=== PATIENT | female | born 1960 | race Caucasian/White ===

== ENCOUNTER 2023-08-23 09:49 | Inpatient (IN) | payer OTHER, SELFPAY ==
[2023-08-23] VITALS (16 sets, daily range): BP systolic 98–164; BP diastolic 59–91; BMI 31.9
--- NOTE | 2023-08-23 07:11 | ED.GENMED ---
History of Present Illness
<EMILY Barber - Last Filed: 08/23/23 13:38>
General
Chief Complaint: Chest Pain
Source: patient
Exam Limitations: none
Time Seen by Provider: 08/23/23 07:10
Nursing documentation reviewed up to this point in time: agreed with
Travel History
Have you had any contact with someone who has COVID-19?: No
Do you have any symptoms of coronavirus? Fever > 100 degrees, chills, cough, shortness of breath, sore throat, loss of taste or smell, muscle aches, or headache?: No
History of Present Illness
History of Present Illness:
63-year-old female with past with history of hypertension high cholesterol presents to the ER for evaluation of chest pain. Patient reports she started to have chest pain at 4:20 am in the morning. She noticed pain across her chest and felt that
her right hand/arm felt tingly. She had no associated shortness of breath. She denies any other radiation. She did take Tums and thought it was reflux. She reports since the start of pain has subsided a little bit but she still feels that
Past History
<EMILY Barber - Last Filed: 08/23/23 13:38>
Past History
ED Past Medical History: GERD and Other (Patient's her thyroid removed due to cancer, she has had fibromyalgia )
ED Past Surgical History: Other (The patient has had a spinal fusion, and thyroid surgery due to cancer )
Social History
Living: with family
Employment: Employed
Family History
Family History: Other (NA)
Review of Systems
<EIMLY Barber - Last Filed: 08/23/23 13:38>
Review of Systems
Allergies reviewed?: Yes
All Other Systems: ROS reviewed and negative except as documented in HPI and ROS
Constitutional: Reports no symptoms; Denies fever, fatigue or chills
EENT: Reports no symptoms
Respiratory: Reports no symptoms; Denies trouble breathing
Cardiac: Reports chest pain; Denies diaphoresis, palpitations or syncope
ABD/GI: Reports no symptoms
: Reports no symptoms
Musculoskeletal: Reports no symptoms
Skin: Reports no symptoms
Neurological: Reports other (Mild tingling right hand)
Psychiatric: Reports no symptoms
Phy Exam
<EMILY Barber - Last Filed: 08/23/23 13:38>
General Physical Exam
General Presentation: no apparent distress
General age: appears stated age
General Skin: warm and dry
General Habitus: normal
General Mental: alert
General Hydration: appears well hydrated
Cardiovascular Exam
Cardiovascular Exam: regular rate/rhythm, no murmur and normal peripheral pulses
Pulmonary Exam
Pulmonary Exam: lungs clear and no respiratory distress
Neurological Exam
Neurological Exam: alert and oriented x3
Musculoskeletal Exam
Musculoskeletal Exam: full ROM
Skin Exam
Skin Exam: normal color and warm/dry
Psychiatric Exam
Psychiatric Exam: normal mood/affect
Scores
<EMILY Barber - Last Filed: 08/23/23 13:38>
Heart Score for Chest Pain Patients
STEMI patient?: Not applicable
Course
<EMILY Barber - Last Filed: 08/23/23 13:38>
Orders/Labs/Results
Orders:
Orders
08/23/23 Breakfast
NPO
Allow oral meds: Yes
Allow clear liquids: No
08/23/23 06:55
EKG [Electrocardiogram (*1)] Urgent
Reason for Study: Chest Pain
EKG- Treatment ONCE
08/23/23 07:21
IV Insert/Care/Rem.- Treatment PRN
08/23/23 07:22
Cardiac Monitoring- Treatment ONCE
CR Chest - 2 Views Urgent
Comment:
Reason For Exam: cp
08/23/23 07:23
Complete Blood Count/With Diff Urgent
Comprehensive Metabolic Panel Urgent
Troponin I Urgent
08/23/23 07:58
Aspirin Chewable [Low Strength Aspirin] 324 mg PO NOW STA
08/23/23 08:04
Nitroglycerin Sublingual [Nitrostat (Sublingual)] 0.4 mg SL [id number] PRN
08/23/23 08:41
Morphine Sulfate 2 mg IV NOW STA
08/23/23 08:46
Heparin 4,000 units IV NOW STA
08/23/23 08:[address] Non Medication Order As Directed
Physician Order: PTT 6 hours after initial start of Heparin infusion
Above order entered?: Yes
08/23/23 08:59
PTT Urgent
Comment: Obtain baseline before beginning heparin infusion if not already collected
08/23/23 09:00
Heparin 56832 Units/250 ml 25,000 units in 250 ml IV PER PROTOCOL
Weight to be used for heparin protocol in kilograms (kg):: 76.5
Protocol:: Cardiac Tx/Acute Coronary
PTT Goal Range to be used:: PTT 73 to 111 seconds
Order type:: Initial
INITIAL Infusion Dose (UNITS/KG/hr) & then follow protocol:: 15 units/kg/hr
Infusion Dose in UNITS/hr & then follow protocol (UNITS/hr):: 1,150
INFUSION RATE in mL/hr & then follow protocol (mL/hr):: 11.5
PTT less than or equal to 64 seconds:: Increase rate by 200 units/hr (+ 2 mL/hr)
PTT 64.1 to 72.9 seconds:: Increase rate by 100 units/hr (+ 1 mL/hr)
PTT 73 to 111 seconds:: Target Range. No change in rate.
PTT 111.1 to 130.9 seconds:: Decrease rate by 100 units/hr (- 1 mL/hr)
PTT 131 to 199.9 seconds:: HOLD for 1 hr. Then decrease rate by 200 units/hr (- 2 mL/hr)
PTT greater than or equal to 200 seconds:: HOLD for 2 hrs & Notify Provider. Then decrease by 200 units/hr (-
2 mL/hr)
Lab follow-up:: Each change, PTT q6h until 2 consecutive are therapeutic. Then PTT
daily.
08/23/23 09:07
Heparin [id number] Units/250 ml 25,000 units in 250 ml .ROUTE .STK-MED
08/23/23 09:28
Admit Patient As Directed
Co-Sign Provider:
Level of Care: Inpatient admission
Assign to:: IVU
Physician / Group: Diane
Diagnosis: NSTEMI/chest pain
Reason for Hospitalization: chest pain/NSTEMI
Expected length of stay greater than two midnights?: Yes
ELOS- Estimated Length of Stay in days: 3
I certify the patient meets the requirements for IP care: Yes
Code Status As Directed
Resuscitation Status: Full Code
08/23/23 09:29
Glycohemoglobin (HgbA1c) Routine
Activity As Directed
Activity Level: Out of Bed-Early Mobility
INT (Intravenous Needle Therapy) As Directed
Comment: maintain peripheral IV access
Intake/ Output As Directed
Frequency: Per unit guidelines
Vital Signs As Directed
Frequency: q4h
08/23/23 09:33
Admit/Transfer Patient As Directed
Co-Sign Provider:
Level of Care: Inpatient admission
Assign to:: IVU
Physician / Group: Diane
Diagnosis: NSTEMI/chest pain
Reason for Hospitalization: chest pain
Expected length of stay greater than two midnights?: Yes
ELOS- Estimated Length of Stay in days: 2
I certify the patient meets the requirements for IP care: Yes
08/23/23 13:00
Troponin I Q6H
HydrALAZINE [Apresoline] 10 mg PO QID
08/23/23 18:00
Valsartan [Diovan] 40 mg PO QPM
08/23/23 19:00
Troponin I Q6H
08/23/23 20:00
Valsartan [Diovan] 80 mg PO BID
08/24/23 06:00
Basic Metabolic Panel IN AM
Cardiovascular Evaluation IN AM
Complete Blood Count/With Diff IN AM
08/24/23 07:00
Levothyroxine [Synthroid] 100 mcg PO MoTuWeThFr@0700
08/26/23 07:00
Levothyroxine [Synthroid] 50 mcg PO SuSa@0700
Abnormal Lab Results
08/23/23
07:23
RBC 4.18 L 10^6/uL
(4.20-5.40)
Hct 36.5 L %
(37.0-47.0)
Abs Immat Gran (auto) 0.1 H 10^3/uL
(0-0.05)
Absolute Neuts (auto) 7.5 H 10^3/uL
(1.4-6.5)
Immature Gran % 0.6 H %
(0-0.5)
Neutrophils % 77.7 H %
(42.2-75.2)
Lymphocytes % 13.5 L %
(20.5-51.1)
Chloride 108 H mmol/L
(98-107)
Glucose 111 H mg/dl
(70-99)
Troponin I 0.195 H* ng/ml
08/23/23 07:23
08/23/23 07:23
Vital Signs
Initial and Last Documented VS:
Initial Vital Signs
Temp Pulse Resp BP Pulse Ox
98.3 F 88 18 136/91 99
08/23/23 06:56 08/23/23 06:56 08/23/23 06:56 08/23/23 06:56 08/23/23 06:56
Last Documented Vital Signs
Temp Pulse Resp BP Pulse Ox
98.3 F 79 21 164/68 98
08/23/23 06:56 08/23/23 11:00 08/23/23 11:00 08/23/23 11:00 08/23/23 11:15
Erp Project Manager consulted with Physician
Erp Project Manager consulted with physician?: Yes
Name of Physician Consulted: clarence
<Jacy Velarde MD - Last Filed: 08/23/23 08:27>
Orders/Labs/Results
Orders:
Orders
08/23/23 Breakfast
NPO
Allow oral meds: Yes
Allow clear liquids: No
08/23/23 06:55
EKG [Electrocardiogram (*1)] Urgent
Reason for Study: Chest Pain
EKG- Treatment ONCE
08/23/23 07:21
IV Insert/Care/Rem.- Treatment PRN
08/23/23 07:22
Cardiac Monitoring- Treatment ONCE
CR Chest - 2 Views Urgent
Comment:
Reason For Exam: cp
08/23/23 07:23
Complete Blood Count/With Diff Urgent
Comprehensive Metabolic Panel Urgent
Troponin I Urgent
08/23/23 07:58
Aspirin Chewable [Low Strength Aspirin] 324 mg PO NOW STA
08/23/23 08:04
Nitroglycerin Sublingual [Nitrostat (Sublingual)] 0.4 mg SL [id number] PRN
08/23/23 08:41
Morphine Sulfate 2 mg IV NOW STA
08/23/23 08:46
Heparin 4,000 units IV NOW STA
08/23/23 08:[address] Non Medication Order As Directed
Physician Order: PTT 6 hours after initial start of Heparin infusion
Above order entered?: Yes
08/23/23 08:59
PTT Urgent
Comment: Obtain baseline before beginning heparin infusion if not already collected
08/23/23 09:00
Heparin 60904 Units/250 ml 25,000 units in 250 ml IV PER PROTOCOL
Weight to be used for heparin protocol in kilograms (kg):: 76.5
Protocol:: Cardiac Tx/Acute Coronary
PTT Goal Range to be used:: PTT 73 to 111 seconds
Order type:: Initial
INITIAL Infusion Dose (UNITS/KG/hr) & then follow protocol:: 15 units/kg/hr
Infusion Dose in UNITS/hr & then follow protocol (UNITS/hr):: 1,150
INFUSION RATE in mL/hr & then follow protocol (mL/hr):: 11.5
PTT less than or equal to 64 seconds:: Increase rate by 200 units/hr (+ 2 mL/hr)
PTT 64.1 to 72.9 seconds:: Increase rate by 100 units/hr (+ 1 mL/hr)
PTT 73 to 111 seconds:: Target Range. No change in rate.
PTT 111.1 to 130.9 seconds:: Decrease rate by 100 units/hr (- 1 mL/hr)
PTT 131 to 199.9 seconds:: HOLD for 1 hr. Then decrease rate by 200 units/hr (- 2 mL/hr)
PTT greater than or equal to 200 seconds:: HOLD for 2 hrs & Notify Provider. Then decrease by 200 units/hr (-
2 mL/hr)
Lab follow-up:: Each change, PTT q6h until 2 consecutive are therapeutic. Then PTT
daily.
08/23/23 09:07
Heparin [id number] Units/250 ml 25,000 units in 250 ml .ROUTE .STK-MED
08/23/23 09:28
Admit Patient As Directed
Co-Sign Provider:
Level of Care: Inpatient admission
Assign to:: IVU
Physician / Group: Diane
Diagnosis: NSTEMI/chest pain
Reason for Hospitalization: chest pain/NSTEMI
Expected length of stay greater than two midnights?: Yes
ELOS- Estimated Length of Stay in days: 3
I certify the patient meets the requirements for IP care: Yes
Code Status As Directed
Resuscitation Status: Full Code
08/23/23 09:29
Glycohemoglobin (HgbA1c) Routine
Activity As Directed
Activity Level: Out of Bed-Early Mobility
INT (Intravenous Needle Therapy) As Directed
Comment: maintain peripheral IV access
Intake/ Output As Directed
Frequency: Per unit guidelines
Vital Signs As Directed
Frequency: q4h
08/23/23 09:33
Admit/Transfer Patient As Directed
Co-Sign Provider:
Level of Care: Inpatient admission
Assign to:: IVU
Physician / Group: Diane
Diagnosis: NSTEMI/chest pain
Reason for Hospitalization: chest pain
Expected length of stay greater than two midnights?: Yes
ELOS- Estimated Length of Stay in days: 2
I certify the patient meets the requirements for IP care: Yes
08/23/23 13:00
Troponin I Q6H
HydrALAZINE [Apresoline] 10 mg PO QID
08/23/23 18:00
Valsartan [Diovan] 40 mg PO QPM
08/23/23 19:00
Troponin I Q6H
08/23/23 20:00
Valsartan [Diovan] 80 mg PO BID
08/24/23 06:00
Basic Metabolic Panel IN AM
Cardiovascular Evaluation IN AM
Complete Blood Count/With Diff IN AM
08/24/23 07:00
Levothyroxine [Synthroid] 100 mcg PO MoTuWeThFr@0700
08/26/23 07:00
Levothyroxine [Synthroid] 50 mcg PO SuSa@0700
Abnormal Lab Results
08/23/23
07:23
RBC 4.18 L 10^6/uL
(4.20-5.40)
Hct 36.5 L %
(37.0-47.0)
Abs Immat Gran (auto) 0.1 H 10^3/uL
(0-0.05)
Absolute Neuts (auto) 7.5 H 10^3/uL
(1.4-6.5)
Immature Gran % 0.6 H %
(0-0.5)
Neutrophils % 77.7 H %
(42.2-75.2)
Lymphocytes % 13.5 L %
(20.5-51.1)
Chloride 108 H mmol/L
(98-107)
Glucose 111 H mg/dl
(70-99)
Troponin I 0.195 H* ng/ml
08/23/23 07:23
08/23/23 07:23
Vital Signs
Initial and Last Documented VS:
Initial Vital Signs
Temp Pulse Resp BP Pulse Ox
98.3 F 88 18 136/91 99
08/23/23 06:56 08/23/23 06:56 08/23/23 06:56 08/23/23 06:56 08/23/23 06:56
Last Documented Vital Signs
Temp Pulse Resp BP Pulse Ox
98.3 F 79 21 164/68 98
08/23/23 06:56 08/23/23 11:00 08/23/23 11:00 08/23/23 11:00 08/23/23 11:15
<EMILY Barber - Last Filed: 08/23/23 13:38>
MDM/Problems Addressed
MDM/Problems Addressed:
0800: Patient's troponin elevated at 0.195. No acute findings on initial EKG. 4 baby aspirin ordered. Patient still has some mild discomfort will try nitroglycerin.
0845: Patient still with pain despite 3 nitroglycerin. Cardiology made aware, Dr. Contreras will evaluate patient. Will order morphine. Patient's pain is currently 4/10. She is stable. As per DR Contreras will start heparin .
0905: Patient was eval by cardiology plan to take to Audio Visual Specialist/admit
<EMILY Barber - Last Filed: 08/23/23 13:38>
*Radiology
Radiology exam reviewed: radiology read reviewed
*Pulse Oximetry
Patient hypoxic: no
*EKG
Interpreted by ED Provider?: Yes
Interpretation: normal
Comparison EKG: no comparison EKG present
Heart Rate: 70
Rate: normal
Rhythm: sinus
Ischemia: no ischemia
*Critical Care Note
Total Time (30-74mins, 75-104mins- exclusive of procedures): Not Applicable
comment:
Critical care statement: A total of 30minutes of critical care time was provided for this patient. This includes management of unstable vital signs, evaluation of the patient at bedside, reviewing the patient's pertinent medical records, discussion
with consultants, review of old EKGs and review of pertinent medical records. This time with separate from time utilized to perform the aforementioned documented procedures
Data Reviewed
Review of Other/Old Records Reveals: Other (Stress echo reviewed from January/2016 shows normal stress no evidence of myocardial ischemia)
<EMILY Barber - Last Filed: 08/23/23 13:38>
Patient Management
Discussion with other providers: Product Planner (DR Contreras cardiology )
ED Attending Note
<EMILY Barber - Last Filed: 08/23/23 13:38>
-
Portions of this chart may have been created with voice recognition software.� Occasional wrong word or��sound alike� substitutions may have occurred due to the inherent limitations of voice recognition software.
<Jacy Velarde MD - Last Filed: 08/23/23 08:27>
ED Attending Note
Patient seen and examined by attending physician: Yes
I performed the substantive portion of visit, reviewed & personally made and approve the management plan that is documented in note by myself or GHANSHYAM.: Yes
ED Attending Note:
63-year-old female presents emergency department with complaints of 'hurts' in the center of her chest that started around 420 this morning continues. The pain is constant without exacerbating relieving factors, not pleuritic in nature, no
associated new back pain, neck pain, jaw pain, headache, dizziness, leg swelling. Upon arrival here, patient still with vague discomfort. ECG noted to be normal. However, troponin elevated at 0.1. Cardiology notified and will see patient
bedside. In the interim, patient administered aspirin and now her third dose of nitroglycerin which has not changed her pain. We will obtain a repeat ECG to make sure there are no changes and update cardiology accordingly. Patient and
aware. On exam, heart regular rate and rhythm, no leg swelling, awake alert, well-appearing, lungs CTA.
Discharge Plan
Departure
Patient Disposition: Admit
Date of Disposition: 08/23/23
Time of Disposition: 09:14
Admit to: Telemetry
Admit to doctor: diane
Presentation/result/management discussed w/ accepting /DO: diane
Patient with high blood pressure during this ER visit?: Yes
Condition: Fair
Covid-19: Not Applicable
Discharge Problem:
Acute non-ST elevation myocardial infarction (NSTEMI), Chest pain
Interventions
Interventions:
*Risk Screen - Suicide Last Done: 08/23/23 06:56
*General Assessment Last Done: 08/23/23 06:56
*Neglect/Abuse Screening Last Done: 08/23/23 06:56
ED- Fall Risk Assessment Last Done: 08/23/23 07:10
*ED COVID-19 Vaccine History Last Done: 08/23/23 06:56
*Nursing Disposition Last Done: 08/23/23 11:25
ED- Cardiac Assessment Last Done: 08/23/23 07:10
Discharge Date and Time
Discharge Date/Time: 08/23/23 11:26
[2023-08-23 07:32] LABS: % Basophils 0.5 % (0-2); % Eosinophils 1.9 % (0-6); % Immature Granulocytes 0.6 % (0-0.5); % Lymphocytes 13.5 % (20.5-51.1); % Monocytes 5.8 % (1.7-9.3); % Neutrophils 77.7 % (42.2-75.2); Absolute Basophils 0.1 10^3/uL (0-0.2); Absolute Eosinophils 0.2 10^3/uL (0-0.7); Absolute Immature Granulocytes 0.1 10^3/uL (0-0.05); Absolute Lymphocytes 1.3 10^3/uL (1.2-3.4); Absolute Monocytes 0.6 10^3/uL (0.1-0.6); Absolute Neutrophils 7.5 10^3/uL (1.4-6.5); Hematocrit 36.5 % (37.0-47.0); Hemoglobin 12.5 g/dL (12.0-16.0); Mean Corp Hgb Conc. 34.2 g/dL (33.0-37.0); Mean Corpuscular Hgb 29.9 pg (27.0-31.0); Mean Corpuscular Volume 87.3 fL (81.0-99.0); Mean Platelet Volume 9.7 fL (7.4-10.4); Nucleated Red Blood Cells % 0 %; Platelet Count 186 10^3/uL (130-400); Red Blood Cell Count 4.18 10^6/uL (4.20-5.40); Red Cell Dist. Width 13.4 % (11.5-14.5); White Blood Cell Count 9.6 10^3/uL (4.8-10.8)
[2023-08-23 07:44] LABS: ALT (SGPT) 21 U/L (0-35); AST (SGOT) 29 U/L (14-36); Albumin 4.6 g/dl (3.5-5.0); Alkaline Phosphatase 115 U/L (38-126); Blood Urea Nitrogen 12 mg/dl (7-17); Calcium 9.5 mg/dl (8.4-10.2); Carbon Dioxide 22 mmol/L (22-30); Chloride 108 mmol/L (98-107); Estimated Creatinine Clearance 87 ml/min; Glucose 111 mg/dl (70-99); Potassium 4.4 mmol/L (3.5-5.1); Sodium 137 mmol/L (135-145); Total Bilirubin 0.5 mg/dl (0.2-1.3); Total Protein 7.2 g/dl (6.3-8.2); eGFR > 60.00
[2023-08-23 07:56] LABS: Troponin I 0.195 ng/ml
[2023-08-23] MEDS: LOW STRENGTH ASPIRIN 324 MG PO (08:03)
[2023-08-23] MEDS: NITROSTAT (SUBLINGUAL) 0.400000000000000022 MG SL ×3 (08:09→08:21)
[2023-08-23] MEDS: HEPARIN 4000 UNITS IV (09:01)
[2023-08-23] MEDS: MORPHINE SULFATE 2 MG IV (09:02)
--- NOTE | 2023-08-23 09:08 | HPS.HSE ---
Addendum entered and electronically signed by Danilo Contreras MD 08/29/23 11:51:
Addendum for home meds:
1. Alprazolam 0.25 mg tablet 0.125 mg PO DAILYPRN PRN anxiety
2. Acetaminophen 650 mg tablet,extended release 650 mg PO Q4HPRN
PRN mild pain
3. Aspirin 81 mg chewable tablet 81 mg PO DAILY
4. Cholecalciferol (vitamin D3) 50 mcg (2,000 unit) tablet 50 mcg
PO DAILY
5. Clobetasol 0.05 % topical ointment 1 applic topical BID PRN
apply to vaginal area
6. Levothyroxine 100 mcg tablet 100 mcg PO MOTUWETHFR Thyroid
7. Levothyroxine 50 mcg tablet 50 mcg PO SUSA Thyroid
8. Valsartan 40 mg tablet (Diovan) 120 mg PO QPM Blood Pressure
9. Valsartan 80 mg tablet (Diovan) 80 mg PO BID Blood Pressure
Addendum entered and electronically signed by Danilo Contreras MD 08/23/23 10:21:
63 yo female with PMH of HTN, hyperlipidemia presented to ED with chest pain that woke her up this AM. Exam with RRR, no murmurs, no edema. TnI 0.195. EKG: anterior T waves biphasic.
NSTEMI. ASA 324mg, heparin drip. Cath today. Echo today.
Original Note:
Family Physician
-
Family Physician: Hank Gregory DO
Chief Complaint
-
chest pain
History of Present Illness
Mrs. Beckford is a 63 yo female with HTN, HLD (intolerant to statins, now on Pravastatin), thyroid cancer s/p thyroidectomy, hypothyroid, obesity and fibromyalgia, who presents to the ER with c/o midsternal chest pain that woke her from sleep at
4:20am. She then noticed back pain between her shoulder blades, but often gets back pain due to her fibromyalgia (not currently on any treatment/meds). Chest pain persisted so she came to the ER. Initial troponin 0.195, and she was given ASA
324mg and 3 SL NTG with improvement of pain but not resolved. EKG with NSR 70 bpm with mild nonspecific T wave changes.
Medical History
Past Medical History
Past Medical History: Reports Other (as above)
Past Surgical History: Reports Orthopedic (spinal fusion L4-L4) and Other (thyroidectomy due to thyroid cancer)
Social History
Tobacco: Non-smoker
Alcohol: None
Personal:
Living: With Family
Family History
Family History: CAD (mother heart failure in 60s)
Allergies / Home Medications
Allergies reflects when Allergies were last updated in [id number].
Home Medications with original date entered in [employer]
Allergy/Medication List:
percocet, meperidine, oxycodone, pentazocine lactate, acetaminophen, lisinopril, irbesartan, demerol, talwin, statins
Review of Systems
-
History Source: Patient
A 12 point ROS was completed and negative except as noted: Yes
Physical Exam
Vital Signs
Vital Signs
Temp Pulse Resp BP Pulse Ox
98.3 F 85 17 164/75 98
08/23/23 06:56 08/23/23 08:30 08/23/23 08:30 08/23/23 08:03 08/23/23 08:30
Physical Exam
General: Well Developed and Well Nourished
HEENT: NormoCephalic, Anicteric and Moist mucous membranes
Respiratory: Clear and Non Labored Respirations
Cardiac: S1/S2 and Regular Rhythm
Breast: Deferred by me
GI: Soft, Non Tender and Normal Bowel Sounds
Rectal: Deferred by Provider
Genito-urinary: Deferred by me
Musculoskeletal: No Clubbing and No Cyanosis
Skin: Warm and Dry
Neuro: AO x 3
Psych: Calm
Laboratory Results
-
08/23/23 07:23
08/23/23 07:23
Laboratory Results
Total Bilirubin 0.5 mg/dl (0.2-1.3) 08/23/23 07:23
AST 29 U/L (14-36) 08/23/23 07:23
ALT 21 U/L (0-35) 08/23/23 07:23
Alkaline Phosphatase 115 U/L (38-126) 08/23/23 07:23
Troponin I 0.195 ng/ml H* 08/23/23 07:23
Data Reviewed
-
Diagnostic Radiology: Report Reviewed by me (cxr nad)
Medical Tests (Nuc Med, Echo, EKG etc): Image Personally Visualized and interpreted (EKG SR 70 bpm with mild nonspecific T wave changes) and Report Reviewed by me (echo 11/2015: normal LVEF 55-60%. stress echo 01/2016: negative for ischemia)
Lab Data: Labs Reviewed by me
Old Records: Reviewed
Impression/Plan
-
IMPRESSION/PLAN:
NSTEMI - initial troponin 0.195.
- trend to peak.
- chest pain woke her from sleep at 4:20am, relieved after 3 SL NTG but not resolved.
- EKG with mild nonspecific T wave changes.
- ASA 324mg, IV Heparin.
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
HTN - continue outpatient meds and monitor.
- multiple drug intolerances.
HLD - intolerant to statins previously.
- now she is on Pravastatin and tolerating.
- check lipid profile.
Hypothyroidism - stable on replacement.
- s/p thyroidectomy due to thyroid cancer.
Fibromyalgia - chronic.
- not currently on meds/treatments.
- takes PRN Tylenol.
[2023-08-23] MEDS: HEPARIN 25000 UNITS/250 ML IV (09:12)
[2023-08-23 09:19] LABS: APTT 33.3 Sec (23.4-35.0)
[2023-08-23 11:57] LABS: ACT-LR - POC 356 Seconds (116-155)
--- NOTE | 2023-08-23 12:23 | ITS.CL.ANGIO ---
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
Angioplasty
Procedure Report:
CARDIAC CATHETERIZATION REPORT
Date of Procedure: 08/23/2023
Referring: Danilo Contreras M.D., Ph.D.
INDICATION: Non-ST elevation myocardial infarction.
PROCEDURE:
1. Left heart catheterization.
2. Coronary angiography.
3. Successful IVUS guided PCI of the mid LAD.
ACCESS:
6 Maltese right radial artery.
CATHETERS:
1. 5 Maltese JR4.
2. 5 Maltese JL 3.5.
3. 6 Maltese EBU 3.5 guiding catheter.
HEMODYNAMIC DATA
Weight (kg): 76.2
AO (s/d/x, mmHg): 150/84/117
LV (s/x mmHg): 152/15
LEFT VENTRICULOGRAPHY: Not performed.
CORONARY ANGIOGRAPHY
Dominance: Right.
Left Main: Normal size, bifurcating vessel. There is no coronary artery disease.
LAD: Normal size vessel giving rise to 1 significant diagonal. The diagonal immediately bifurcates into an upper and lower branch. The vessel is acutely occluded in its midportion, immediately after the first diagonal.
Ramus: Congenitally absent.
Circumflex: Normal size, nondominant vessel giving rise to 3 obtuse marginals. There is no coronary artery disease.
RCA: Normal size, dominant vessel. There is no coronary artery disease.
INTERVENTION(S)
1. Successful PCI of the occluded mid LAD (Xience Skypoint 2.5 x 28 SAMUEL) with reduction in stenosis to 0%, restoring AWA-3 flow.
2. Successful intravascular ultrasound of the LAD and left main.
3. Successful post dilation of the mid LAD stent (2.5 x 20 NC balloon throughout, 3.25 x 12 NC balloon to 10 curtis in the midportion and 12 curtis in the proximal margin).
Narrative:
The decision was made to proceed with percutaneous coronary intervention. The diagnostic catheter was removed over a wire and a 6Fr EBU 3.5 guiding catheter was advanced to the aortic root and seated in the left main coronary artery. Additional
heparin was given and a Power Turn Flex wire was advanced into the distal LAD. The 100% mid LAD lesion was predilated with a 2.0 x 12 semi-compliant balloon to 12 curtis. The semi-compliant balloon was removed and a Xience Skypoint 2.5 x 28
drug-eluting stent was advanced. Meticulous care was taken while positioning the stent, ensuring that the stent covered the entire mid LAD lesion which extended back to the level of the diagonal but also cover the entire acute lesion. The stent
was deployed at 12 atmospheres. The stent balloon was removed.
The decision was made to perform intracoronary imaging. An IVUS catheter was advanced through the guiding catheter and into the ostium of the artery. Ring down was performed once the imaging crystal was no longer inside of the guiding catheter. The
IVUS catheter was advanced into the mid LAD, beyond the stented margin. Intravascular ultrasound was performed in a retrograde fashion using a slow pullback. Intracoronary imaging demonstrated good stent apposition throughout the entire stented
segment with appropriate sizing in the distal margin with some underexpansion in the mid stent and undersizing in the proximal margin.
The IVUS catheter was withdrawn and a 2.5 x 20 noncompliant balloon was advanced into the stent and the entire stent was postdilated to 12 atmospheres with improvement in the visible stent contour. The 2.5 x 20 NC balloon was withdrawn and a 3.25 x
8 NC balloon was advanced. The proximal stent margin was postdilated to 12 curtis. The balloon was subsequently advanced slightly more distal and the stent was dilated to 10 curtis. Angiography was performed in orthogonal views, confirming good stent
expansion with appropriate sizing and vessel taper and an excellent angiographic result. The coronary wire was withdrawn and the guide was disengaged from the artery. The catheter was removed over a standard J-wire.
Closure Device: Vascular band.
Radiation (mGy): 909.39
DAP (cm2.Gy): 59.5056
Fluoroscopy time (minutes): 8.7
Sedation time (minutes): 48
CONCLUSIONS
1. Right dominant circulation with an acutely occluded mid LAD after the origin of the first diagonal, status post successful IVUS guided PCI (Xience Skypoint 2.5 x 28 SAMUEL, postdilated with a 2.5 x 20 NC balloon throughout, a 3.25 x 12 NC balloon
to 10 curtis in the midportion and 12 curtis in the proximal margin) with reduction in stenosis to 0%, restoring AWA-3 flow.
2. Mildly elevated filling pressures (LVEDP = 15 mmHg at 76.2 kg).
RECOMMENDATIONS:
1. Expectant management after cardiac catheterization via right radial approach.
2. Limited weight bearing on the right wrist for one week.
3. Dual antiplatelet therapy with aspirin and ticagrelor for at least 12 months, followed by aspirin indefinitely.
4. Secondary prevention with high-dose, high potency statin and aggressive blood pressure control.
5. Echocardiogram ordered and pending.
6. Referral to cardiac rehab.
Copy to: Danilo Contreras M.D., Ph.D., Miriam Gregory D.O., Ruel Fernandes M.D.
Musa Nieves DO, FACC, FACP
[2023-08-23] MEDS: APRESOLINE 10 MG PO ×2 (14:47→20:29)
--- NOTE | 2023-08-23 16:05 | CM ---
CM following for DC planning needs.
Met w/ patient at bedside to complete initial assessment.
Pt. resides w/ spouse, 1 dog in a private home. Functionally, she is indep. at baseline w/ ADLs, mobility without the use of any assisted device. Pt. has Rx plan and uses [facility] on [facility] [address]
Anticipated DC plan is for home, no needs.
CM to follow.
--- NOTE | 2023-08-23 16:30 | CM ---
Priced Brilinta thru insurance, . Per credit resolution representative, estimated cost of Brilinta would be $50/30 d or $100/90 d. TT to EMILY to notify and request RX to be sent to patient's pharmacy.
Call to patient's pharmacy-estimated cost of Brilinta is $25/30 d supply and they have this in stock.
Will place coupon in patient's chart for free 30 d supply.
Did notify patient of estimated copay; she is agreeable to cost.
--- NOTE | 2023-08-23 18:56 | PTCARENOTE ---
pt continues to be SR on the monitor, HR in the 80s-90s, VSS. pt denies CP at this time. right radial continues to ooze. pt educated on plan of care for the evening and pt verbalized understanding. pt has ambulated to the BR with no issues. call
castillo within reach.
[2023-08-23] MEDS: BRILINTA 90 MG PO (20:29)
[2023-08-23] MEDS: LIPITOR 40 MG PO (20:29)
[2023-08-23] MEDS: DIOVAN 120 MG PO (20:29)
[2023-08-23] MEDS: APRESOLINE PO (23:51)
--- NOTE | 2023-08-23 23:51 | PTCARENOTE ---
patient resting comfortably in bed. denies any cp/sob. SR 70s-90s on tele. bp 98/59. R radial site, CDI. gauze/teg intact. + pulses. ambulating to the bathroom independently. reviewed activity restrictions with patient and verbalized understanding.
answered all questions. call castillo within reach. educated to call RN with any changes.
[2023-08-24] VITALS (8 sets, daily range): BP systolic 108–129; BP diastolic 54–71; BMI 30.9
[2023-08-24 04:41] LABS: % Basophils 0.2 % (0-2); % Eosinophils 0.8 % (0-6); % Immature Granulocytes 0.4 % (0-0.5); % Lymphocytes 14.5 % (20.5-51.1); % Monocytes 8.7 % (1.7-9.3); % Neutrophils 75.4 % (42.2-75.2); Absolute Eosinophils 0.1 10^3/uL (0-0.7); Absolute Lymphocytes 1.4 10^3/uL (1.2-3.4); Absolute Monocytes 0.9 10^3/uL (0.1-0.6); Absolute Neutrophils 7.5 10^3/uL (1.4-6.5); Hematocrit 35.2 % (37.0-47.0); Mean Corp Hgb Conc. 34.1 g/dL (33.0-37.0); Mean Corpuscular Hgb 29.6 pg (27.0-31.0); Mean Corpuscular Volume 86.9 fL (81.0-99.0); Mean Platelet Volume 9.9 fL (7.4-10.4); Nucleated Red Blood Cells % 0 %; Platelet Count 187 10^3/uL (130-400); Red Blood Cell Count 4.05 10^6/uL (4.20-5.40); Red Cell Dist. Width 13.6 % (11.5-14.5); White Blood Cell Count 9.9 10^3/uL (4.8-10.8)
[2023-08-24 05:14] LABS: Blood Urea Nitrogen 13 mg/dl (7-17); Calcium 9.1 mg/dl (8.4-10.2); Carbon Dioxide 23 mmol/L (22-30); Chloride 105 mmol/L (98-107); Estimated Creatinine Clearance 74 ml/min; Glucose 99 mg/dl (70-99); HDL Cholesterol 38 mg/dl; LDL Cholesterol, Calculated 120 mg/dl; Potassium 4.3 mmol/L (3.5-5.1); Sodium 135 mmol/L (135-145); Total Cholesterol 216 mg/dl (50-199); Triglyceride 291 mg/dl (10-149); Very Low Density Lipoprotein 58 mg/dl (0-30); eGFR > 60.00
--- NOTE | 2023-08-24 07:19 | W.PN.CD ---
Today's Communication / Plan
-
Echocardiogram pending.
Start metoprolol 25 mg daily.
Discharge planning (tomorrow?).
Impression / Plan
-
Impression/Plan: 63 y/o female with HTN/HLD, thyroid CA s/p surgery with hypothyroidism and FMG admitted with NSTEMI.
#NSTEMI
-Acute, new diagnosis.
-Troponin peaked at 32.
-S/P PCI to a totally occluded mLAD (Xience Skypoint 2.5 x 28 SAMUEL, post dilated with 2.5 NCB throughout, 3.25 NCB in the proximal margin), reducing stenosis to 0%, restoring AWA III flow.
-DAPT with aspirin and ticagrelor for at least 12 months, followed by aspirin indefinitely.
-Start metoprolol.
-Secondary prevention with high dose, high potency statin.
-Echocardiogram pending.
#HTN
-Chronic, stable.
-Continue outpatient meds and monitor.
-Multiple drug intolerances.
#HLD/Statin intolerance
-Chronic, stable.
-Previously intolerant of statins, currently tolerating atorvastatin 40 mg daily.
-Total cholesterol = 216, LDL = 120, HDL = 38, Triglycerides = 291. Goal LDL < 55, goal Triglycerides < 150.
#Hypothyroidism
-S/P thyroidectomy due to thyroid cancer.
-Chronic, stable.
-Continue levothyroxine.
#Fibromyalgia
-Chronic, stable.
-PRN Tylenol.
Subjective/Interval History:
PCI to the mLAD yesterday.
Feels well this morning.
DATA:
Cardiac Catheterization/PCI, 08/23/2023:
CONCLUSIONS
1.� Right dominant circulation with an acutely occluded mid LAD after the origin of the first diagonal, status post successful IVUS guided PCI (Xience Skypoint 2.5 x 28 SAMUEL, postdilated with a 2.5 x 20 NC balloon throughout, a 3.25 x 12 NC balloon
to 10 curtis in the midportion and 12 curtis in the proximal margin) with reduction in stenosis to 0%, restoring AWA-3 flow.
2.� Mildly elevated filling pressures (LVEDP = 15 mmHg at 76.2 kg).
Physical Exam
Vital Signs/Labs
Vital Signs
Temp Pulse Resp BP Pulse Ox
37.1 C 90 18 113/64 97
08/24/23 04:39 08/24/23 04:30 08/24/23 04:39 08/24/23 04:13 08/24/23 04:39
08/22/23 08/23/23 08/24/23
11:59 11:59 11:59
Actual Weight 76.5 kg 74.1 kg
08/24/23 04:19
08/24/23 04:19
APTT 33.3 Sec (23.4-35.0) 08/23/23 08:59
Triglycerides 291 mg/dl (10-149) H 08/24/23 04:19
LDL Cholesterol, Calc 120 mg/dl 08/24/23 04:19
VLDL Cholesterol, Calc 58 mg/dl (0-30) H 08/24/23 04:19
HDL Cholesterol 38 mg/dl 08/24/23 04:19
LAB Results
08/23/23 08/23/23 08/23/23
07:23 14:45 20:31
Troponin I 0.195 H* 21.300 H* D 32.100 H* D
08/24/23
04:19
Troponin I 20.100 H* D
Physical Exam
Constitutional: No acute distress and Comfortable
EENT: Anicteric and Moist mucous membranes
Cardiovascular: Rhythm & rate is regular, Pedal edema is absent, JVD pressure is normal, S1S2 is normal and Murmur/rub/gallop absent
Respiratory: Respiratory effort normal, Lungs clear to auscul., Wheeze Absent, Crackles Absent and Rhonchi Absent
GI: Soft, Distention absent, Flat, Non tender and Normal bowel sounds
Neuro/Psych: AO x 3
Other: Cath Site (Right radial access site is C/D/I.)
Data Reviewed
-
Date of Service: August 24, 2023
Medical Decision Making: Reviewed Test Results, Independent Historian Assessment and Test Interpretation
EKG: Tracing Personally Visualized and interpreted and Report Reviewed by me
X-Ray/CT/US/MRI/NUC/PET: Image Personally Visualized and interpreted and Report Reviewed by me
Medical Tests (PFT, Pathology etc): Image Personally Visualized and interpreted, Report Reviewed by me, Discussed with Patient and Discussed with Family
Labs: Labs Reviewed by me
Old Records: Reviewed
[2023-08-24] MEDS: BRILINTA 90 MG PO ×2 (08:05→19:51)
[2023-08-24] MEDS: APRESOLINE 10 MG PO ×3 (08:05→22:32)
[2023-08-24] MEDS: DIOVAN 80 MG PO (08:06)
[2023-08-24] MEDS: TOPROL XL 25 MG PO (08:06)
[2023-08-24] MEDS: LOW STRENGTH ASPIRIN 81 MG PO (08:06)
[2023-08-24] MEDS: SYNTHROID 100 MCG PO (08:06)
--- NOTE | 2023-08-24 10:20 | PTCARENOTE ---
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 patient has allergy to Percocet NOT Tylenol. patient stated that she takes Tylenol every day.
[2023-08-24] MEDS: TYLENOL 650 MG PO (10:33)
--- NOTE | 2023-08-24 15:49 | PTCARENOTE ---
Echo completed at bedside.
[2023-08-24] MEDS: DIOVAN 120 MG PO (17:48)
[2023-08-24] MEDS: APRESOLINE PO (17:48)
[2023-08-24] MEDS: LIPITOR 40 MG PO (17:50)
--- NOTE | 2023-08-24 18:00 | PTCARENOTE ---
patient refused her hydralazine because she felt 'out of it' when she took it earlier and believes her BP is too low when she takes it. BP 129/60.
--- NOTE | 2023-08-24 21:41 | PTCARENOTE ---
Assumed care of patient at change of shift, pts at bedside. Patient AAOx3, VSS, and sating 97% RA. Denies any pain or discomfort. Patient reports a new non productive cough that started earlier today. Lungs clear throughout, and pt denies
any SOB. Tele monitor shows SR, HR in the 70-90's. Right radial dressing intact w/ some ecchymosis near site. Patient educated on activity restrictions, and verbalized understanding. CAD packet provided, education provided. Patient aware of POC, and
can make all needs known.
[2023-08-25 04:05] VITALS: BP 120/58
[2023-08-25] MEDS: SYNTHROID 100 MCG PO (06:12)
[2023-08-25 06:54] VITALS: BP 133/71
--- NOTE | 2023-08-25 07:56 | W.PN.CD ---
Today's Communication / Plan
-
Doing well.
D/C hydralazine.
Stable for discharge.
Impression / Plan
-
Impression/Plan: 63 y/o female with HTN/HLD, thyroid CA s/p surgery with hypothyroidism and FMG admitted with NSTEMI.
#NSTEMI
-Acute, new diagnosis.
-Troponin peaked at 32.
-S/P PCI to a totally occluded mLAD (Xience Skypoint 2.5 x 28 SAMUEL, post dilated with 2.5 NCB throughout, 3.25 NCB in the proximal margin), reducing stenosis to 0%, restoring AWA III flow.
-DAPT with aspirin and ticagrelor for at least 12 months, followed by aspirin indefinitely.
-Secondary prevention with high dose, high potency statin.
-Echocardiogram shows dLAD territory hypokinesis.
-Tolerating DAPT and metoprolol.
#HTN
-Chronic, stable.
-Continue outpatient meds and monitor.
-Multiple drug intolerances.
#HLD/Statin intolerance
-Chronic, stable.
-Previously intolerant of statins, currently tolerating atorvastatin 40 mg daily.
-Total cholesterol = 216, LDL = 120, HDL = 38, Triglycerides = 291. Goal LDL < 55, goal Triglycerides < 150.
#Hypothyroidism
-S/P thyroidectomy due to thyroid cancer.
-Chronic, stable.
-Continue levothyroxine.
#Fibromyalgia
-Chronic, stable.
-PRN Tylenol.
Subjective/Interval History:
Doing well.
Echo shows dLAD territory hypokinesis.
She felt 'odd' after hydralazine.
DATA:
Cardiac Catheterization/PCI, 08/23/2023:
CONCLUSIONS
1.� Right dominant circulation with an acutely occluded mid LAD after the origin of the first diagonal, status post successful IVUS guided PCI (Xience Skypoint 2.5 x 28 SAMUEL, postdilated with a 2.5 x 20 NC balloon throughout, a 3.25 x 12 NC balloon
to 10 curtis in the midportion and 12 curtis in the proximal margin) with reduction in stenosis to 0%, restoring AWA-3 flow.
2.� Mildly elevated filling pressures (LVEDP = 15 mmHg at 76.2 kg).
TTE, 2.8:
CONCLUSIONS
�Normal global systolic function with hypokinesis of the inferoseptal wall and
�distal anteroseptal wall.
�Left ventricular ejection fraction is 50-55%.
�No significant valvular disease.
�Compared to prior study of 12/04/2015, the regional wall motion abnromality is
�new.
Physical Exam
Vital Signs/Labs
Vital Signs
Temp Pulse Resp BP Pulse Ox
36.6 C 80 16 120/58 99
08/25/23 06:55 08/25/23 06:55 08/25/23 06:55 08/25/23 04:05 08/25/23 06:55
08/23/23 08/24/23 08/25/23
11:59 11:59 11:59
Actual Weight 76.5 kg 74.1 kg
08/24/23 04:19
08/24/23 04:19
APTT 33.3 Sec (23.4-35.0) 08/23/23 08:59
Triglycerides 291 mg/dl (10-149) H 08/24/23 04:19
LDL Cholesterol, Calc 120 mg/dl 08/24/23 04:19
VLDL Cholesterol, Calc 58 mg/dl (0-30) H 08/24/23 04:19
HDL Cholesterol 38 mg/dl 08/24/23 04:19
LAB Results
08/23/23 08/23/23 08/23/23
07:23 14:45 20:31
Troponin I 0.195 H* 21.300 H* D 32.100 H* D
08/24/23
04:19
Troponin I 20.100 H* D
Physical Exam
Constitutional: No acute distress and Comfortable
EENT: Anicteric and Moist mucous membranes
Cardiovascular: Rhythm & rate is regular, Pedal edema is absent, JVD pressure is normal, S1S2 is normal and Murmur/rub/gallop absent
Respiratory: Respiratory effort normal, Lungs clear to auscul., Wheeze Absent, Crackles Absent and Rhonchi Absent
GI: Soft, Distention absent, Flat, Non tender and Normal bowel sounds
Neuro/Psych: AO x 3
Other: Cath Site (Right radial access site is C/D/I.)
Data Reviewed
-
Date of Service: August 25, 2023
Medical Decision Making: Reviewed Test Results, Independent Historian Assessment and Test Interpretation
EKG: Tracing Personally Visualized and interpreted and Report Reviewed by me
Echo: Tracing Personally Visualized and interpreted and Report Reviewed by me
X-Ray/CT/US/MRI/NUC/PET: Image Personally Visualized and interpreted and Report Reviewed by me
Medical Tests (PFT, Pathology etc): Image Personally Visualized and interpreted, Report Reviewed by me, Discussed with Patient and Discussed with Family
Labs: Labs Reviewed by me
Old Records: Reviewed
[2023-08-25] MEDS: LOW STRENGTH ASPIRIN 81 MG PO (09:34)
[2023-08-25] MEDS: BRILINTA 90 MG PO (09:35)
[2023-08-25] MEDS: TOPROL XL 25 MG PO (09:35)
[2023-08-25] MEDS: DIOVAN 80 MG PO (09:35)
[2023-08-25] MEDS: APRESOLINE PO (09:37)
--- NOTE | 2023-08-25 09:56 | W.DS.TRANS ---
DC Summary - Project Facilitator
-
Discharge Instructions:
Discharge Diagnosis/Procedures NSTEMI, Angioplasty with stent to Left Anterior
Descending artery
Diet Low Cholesterol,Low Sodium
Driving Restrictions No driving for 24 hours
Other Services Cardiac Rehab
Stop these medications: STOP hydralazine until followup appointment with
cardiology
STOP pravastatin- you will be on atorvastatin
now.
Instructions:
Stand-Alone Forms: DC Instructions- Cath/EP Lab
Return to Work
Changes to Home Medications: Yes
Discharge Medications:
DC Medications w/original date entered in [employer]
alprazolam 0.25 mg tablet 0.125 mg PO DAILYPRN PRN anxiety 08/17/19
acetaminophen 650 mg tablet,extended release 650 mg PO Q4HPRN PRN mild pain 08/23/23
aspirin 81 mg chewable tablet 81 mg PO DAILY #1 tab 08/23/23
cholecalciferol (vitamin D3) 50 mcg (2,000 unit) tablet 50 mcg PO DAILY Supplement 08/23/23
clobetasol 0.05 % topical ointment 1 applic topical BID PRN apply to vaginal area 08/23/23
levothyroxine 100 mcg tablet 100 mcg PO MOTUWETHFR Thyroid 08/23/23
levothyroxine 50 mcg tablet 50 mcg PO SUSA Thyroid 08/23/23
ticagrelor 90 mg tablet (Brilinta) 90 mg PO BID #60 tabs 08/23/23
valsartan 40 mg tablet (Diovan) 120 mg PO QPM Blood Pressure 08/23/23
valsartan 80 mg tablet (Diovan) 80 mg PO BID Blood Pressure 08/23/23
atorvastatin 40 mg tablet 40 mg PO QPM #90 tabs 08/25/23
metoprolol succinate 25 mg tablet,extended release 24 hr 25 mg PO DAILY #90 tabs 08/25/23
nitroglycerin 0.4 mg sublingual tablet 0.4 mg sublingual [id number] PRN chest pain #25 tabs 02/09/24
Home Medication Changes
STOP: hydralazine, pravastatin
NEW: brilinta, metoprolol, atorvastatin, nitrostat
Pending Results: No
--- NOTE | 2023-08-25 10:19 | PTCARENOTE ---
Assumed care of pt from night RN. Pt recived awake and alert, Ox3. VSS, CM shows NSR 80's, POX 99% on RA. Right radial site CDI with good CMD throughout limb. Bruising to LAC noted. She denies any pain or discomfort, for potential D/C today.
--- NOTE | 2023-08-25 13:58 | PTCARENOTE ---
All D/C info reviewed with pt, all questions answered. Pt D/C'd home with spouse.
== END 2023-08-25 14:30 | disposition home or self-care (01) | DRG 322 ==
LOC: IVU 09:49
PROVIDERS: Internal Medicine Cardiovascular Disease; Nurse Practitioner; ADMITTING PHYSICIAN Internal Medicine; EMERGENCY PHYSICIAN Emergency Medicine; FAMILY PHYSICIAN Student in an Organized Health Care Education/Training Program
PROC: B241ZZ3 Ultrasonography of Multiple Coronary Arteries, Intravascular (ICD-10-PCS; 2023-08-23)
PROC: 4A023N7 Measurement of Cardiac Sampling and Pressure, Left Heart, Percutaneous Approach (ICD-10-PCS; 2023-08-23)
PROC: B2111ZZ Fluoroscopy of Multiple Coronary Arteries using Low Osmolar Contrast (ICD-10-PCS; 2023-08-23)
PROC: 027034Z Dilation of Coronary Artery, One Artery with Drug-eluting Intraluminal Device, Percutaneous Approach (ICD-10-PCS; 2023-08-23)
DX: I21.4 Non-ST elevation (NSTEMI) myocardial infarction (principal); I25.10 Atherosclerotic heart disease of native coronary artery without angina pectoris; E78.00 Pure hypercholesterolemia, unspecified; I10 Essential (primary) hypertension; E89.0 Postprocedural hypothyroidism; M79.7 Fibromyalgia; E66.9 Obesity, unspecified; K21.9 Gastro-esophageal reflux disease without esophagitis; Z68.30 Body mass index [BMI] 30.0-30.9, adult; Z82.49 Family history of ischemic heart disease and other diseases of the circulatory system; Z85.850 Personal history of malignant neoplasm of thyroid; Z98.1 Arthrodesis status
CPT/HCPCS: 71046; 80048; 80053; 80061; 83036; 84484; 85025; 85347; 85730; 92978; 93005; 93306; 93458; 96365; 96366; 96375; 99291; C9600; Q9967

== ENCOUNTER 2023-09-04 19:41 | Emergency (ER) | payer OTHER, SELFPAY ==
[2023-09-04 19:44] VITALS: BP 152/82
[2023-09-04 20:08] VITALS: BP 155/79
--- NOTE | 2023-09-04 20:12 | ED.GENMED ---
History of Present Illness
<Serge Guerra PA-C - Last Filed: 09/04/23 21:00>
General
Chief Complaint: Chest Pain
Source: patient and physician
Time Seen by Provider: 09/04/23 20:01
Travel History
Have you had any contact with someone who has COVID-19?: No
Do you have any symptoms of coronavirus? Fever > 100 degrees, chills, cough, shortness of breath, sore throat, loss of taste or smell, muscle aches, or headache?: No
History of Present Illness
History of Present Illness:
63-year-old female treated earlier this month for an NSTEMI with a cardiac stent in her LAD after 100% presents back to the emergency department at request of her touch up carver after she went back to work for the first time today and while sitting at
her desk developed pain between her scapula and her back that radiated outwards bilaterally and had been persistent for about an hour and a half, resolved after going home and resting. Around 530 patient started making dinner for herself and her
dog when the symptoms started again but notes that it was much less severe. Symptoms are fully resolved at time of arrival to the emergency department. Patient contacted her cardiology office and was directed to come to the ER for further
evaluation. She all of her medications including her dual action platelet therapy she has no other symptoms at this time and denies any fevers or infectious symptoms.
Past History
<Serge Guerra PA-C - Last Filed: 09/04/23 21:00>
Past History
ED Past Medical History: Cancer, GERD, HTN, [place], Psychiatric and Other (Patient's her thyroid removed due to cancer, she has had fibromyalgia )
ED Past Surgical History: Orthopedic and Other (The patient has had a spinal fusion, and thyroid surgery due to cancer )
Social History
Tobacco: Non-smoker
Alcohol: None
Drug: None
Personal:
Living: with family
Employment: Employed
Family History
Family History: Other (NA)
Review of Systems
<Serge Guerra PA-C - Last Filed: 09/04/23 21:00>
Review of Systems
All Other Systems: ROS reviewed and negative except as documented in HPI and ROS
Phy Exam
<Serge Guerra PA-C - Last Filed: 09/04/23 21:00>
Physical Exam
Physical Exam:
GENERAL: Alert , in no apparent distress, Somewhat anxious
EYE: clear conjunctiva b/l
HEAD: NCAT
ENT: o/p clr, mmm.
CARDIAC: Regular rate and rhythm, No murmur .
LUNGS: Clear breath sounds bilaterally, no acute respiratory distress, no wheezes/rales/rhonchi
ABDOMEN: Soft, without focal tenderness, no r/g, no cvat
Back: No focal tenderness, full range of motion, no rashes
NEUROLOGICAL: Alert and oriented
SKIN: Warm and dry, skin intact.
MUSCULOSKELETAL: No edema, well perfused.
PSYCH: Normal and appropriate interaction.
Scores
<Serge Guerra PA-C - Last Filed: 09/04/23 21:00>
Heart Failure Risk
Heart Failure Risk Score: Not Applicable
Heart Score for Chest Pain Patients
STEMI patient?: No
History: Moderately Suspicious
ECG: Nonspecific Repolarization
Age: >/= 65 years
Risk Factors: >/= 3 Risk Factors or History of CAD
Troponin: </= Normal Limit
Heart Score for Chest Pain Patients: 6
Heart Score Risk: 20.3% MACE over next 6 weeks
Withdrawal Assessment of Alcohol
Withdrawal Assessment Completed?: Not applicable
<Silvano Peck MD - Last Filed: 09/04/23 21:33>
Heart Score for Chest Pain Patients
Heart Score for Chest Pain Patients: 6
Heart Score Risk: 20.3% MACE over next 6 weeks
<Kasi Knight DO - Last Filed: 09/04/23 23:56>
Heart Score for Chest Pain Patients
Heart Score for Chest Pain Patients: 6
Heart Score Risk: 20.3% MACE over next 6 weeks
Course
<Serge Guerra PA-C - Last Filed: 09/04/23 21:00>
Orders/Labs/Results
Orders:
Orders
09/04/23 19:49
Electrocardiogram (*1) Urgent
Reason for Study: Chest Pain
EKG- Treatment ONCE
09/04/23 20:18
CMP [Comprehensive Metabolic Panel] Urgent
Complete Blood Count/With Diff Urgent
Troponin I Urgent
09/04/23 20:35
CT Chest/abd/pelvis Angio W/wo Urgent
Comment:
Reason For Exam: mid scapular pain, recent LAD stent
09/04/23 23:11
Troponin I Urgent
Abnormal Lab Results
09/04/23
20:18
RBC 4.12 L 10^6/uL
(4.20-5.40)
Hct 34.4 L %
(37.0-47.0)
MPV 10.5 H fL
(7.4-10.4)
Absolute Monos (auto) 0.7 H 10^3/uL
(0.1-0.6)
Lymphocytes % 16.4 L %
(20.5-51.1)
Carbon Dioxide 19 L mmol/L
(22-30)
BUN 27 H mg/dl
(7-17)
Glucose 102 H mg/dl
(70-99)
Troponin I 0.039 H* ng/ml
09/04/23 20:18
09/04/23 20:18
Vital Signs
Initial and Last Documented VS:
Initial Vital Signs
Temp Pulse Resp BP Pulse Ox
97.6 F 86 22 152/82 98
09/04/23 19:44 09/04/23 19:44 09/04/23 19:44 09/04/23 19:44 09/04/23 19:44
Last Documented Vital Signs
Temp Pulse Resp BP Pulse Ox
97.6 F 69 19 131/48 98
09/04/23 19:44 09/04/23 21:19 09/04/23 21:19 09/04/23 22:00 09/04/23 19:44
Vulcanizer consulted with Physician
Vulcanizer consulted with physician?: Yes
Name of Physician Consulted: [facility]
<Silvano Peck MD - Last Filed: 09/04/23 21:33>
Orders/Labs/Results
Orders:
Orders
09/04/23 19:49
Electrocardiogram (*1) Urgent
Reason for Study: Chest Pain
EKG- Treatment ONCE
09/04/23 20:18
CMP [Comprehensive Metabolic Panel] Urgent
Complete Blood Count/With Diff Urgent
Troponin I Urgent
09/04/23 20:35
CT Chest/abd/pelvis Angio W/wo Urgent
Comment:
Reason For Exam: mid scapular pain, recent LAD stent
09/04/23 23:11
Troponin I Urgent
Abnormal Lab Results
09/04/23
20:18
RBC 4.12 L 10^6/uL
(4.20-5.40)
Hct 34.4 L %
(37.0-47.0)
MPV 10.5 H fL
(7.4-10.4)
Absolute Monos (auto) 0.7 H 10^3/uL
(0.1-0.6)
Lymphocytes % 16.4 L %
(20.5-51.1)
Carbon Dioxide 19 L mmol/L
(22-30)
BUN 27 H mg/dl
(7-17)
Glucose 102 H mg/dl
(70-99)
Troponin I 0.039 H* ng/ml
09/04/23 20:18
09/04/23 20:18
Vital Signs
Initial and Last Documented VS:
Initial Vital Signs
Temp Pulse Resp BP Pulse Ox
97.6 F 86 22 152/82 98
09/04/23 19:44 09/04/23 19:44 09/04/23 19:44 09/04/23 19:44 09/04/23 19:44
Last Documented Vital Signs
Temp Pulse Resp BP Pulse Ox
97.6 F 69 19 131/48 98
09/04/23 19:44 09/04/23 21:19 09/04/23 21:19 09/04/23 22:00 09/04/23 19:44
<Kasi Knight, DO - Last Filed: 09/04/23 23:56>
Orders/Labs/Results
Orders:
Orders
09/04/23 19:49
Electrocardiogram (*1) Urgent
Reason for Study: Chest Pain
EKG- Treatment ONCE
09/04/23 20:18
CMP [Comprehensive Metabolic Panel] Urgent
Complete Blood Count/With Diff Urgent
Troponin I Urgent
09/04/23 20:35
CT Chest/abd/pelvis Angio W/wo Urgent
Comment:
Reason For Exam: mid scapular pain, recent LAD stent
09/04/23 23:11
Troponin I Urgent
Abnormal Lab Results
09/04/23
20:18
RBC 4.12 L 10^6/uL
(4.20-5.40)
Hct 34.4 L %
(37.0-47.0)
MPV 10.5 H fL
(7.4-10.4)
Absolute Monos (auto) 0.7 H 10^3/uL
(0.1-0.6)
Lymphocytes % 16.4 L %
(20.5-51.1)
Carbon Dioxide 19 L mmol/L
(22-30)
BUN 27 H mg/dl
(7-17)
Glucose 102 H mg/dl
(70-99)
Troponin I 0.039 H* ng/ml
09/04/23 20:18
09/04/23 20:18
Vital Signs
Initial and Last Documented VS:
Initial Vital Signs
Temp Pulse Resp BP Pulse Ox
97.6 F 86 22 152/82 98
09/04/23 19:44 09/04/23 19:44 09/04/23 19:44 09/04/23 19:44 09/04/23 19:44
Last Documented Vital Signs
Temp Pulse Resp BP Pulse Ox
97.6 F 69 19 131/48 98
09/04/23 19:44 09/04/23 21:19 09/04/23 21:19 09/04/23 22:00 09/04/23 19:44
<Serge Guerra PA-C - Last Filed: 09/04/23 21:00>
MDM/Problems Addressed
Differential Diagnosis Includes:
Atypical ACS, aortic dissection/aneurysm, GERD/gastritis, muscular etiology, anxiety
MDM/Problems Addressed:
63-year-old female present emergency department for evaluation at the request of touch up carver for intrascapular pain with 2 episodes occurring today, symptom-free at present. Patient is approximately 2 weeks status post LAD stenting from 100%
occlusion. Taking her antiplatelet medications as directed. Mild hypertension on arrival to the emergency department. EKG done in triage reveals T wave inversions in the anterolateral leads that are mostly unchanged from last EKG. Labs ordered.
Will discuss with cardiology to help determine disposition.
Chronic conditions affecting care: CAD
Acute Exacerbation and/or Progression of Chronic Illness: CAD
<Serge Guerra PA-C - Last Filed: 09/04/23 21:00>
*Pulse Oximetry
Patient hypoxic: no
*EKG
Interpreted by ED Provider?: Yes
Comparison EKG: no changes
Heart Rate: 65
Rate: normal
Rhythm: sinus
[place]: normal axis
Ischemia: T-wave inversion (Anterolateral leads)
*Gaming Manager Interpretation
Rate: normal
Rhythm: sinus
Data Reviewed
Review of Other/Old Records Reveals: Labs, Records and Discharge Summary
Source: patient
<Kasi Knight DO - Last Filed: 09/04/23 23:56>
*Critical Care Note
Total Time (30-74mins, 75-104mins- exclusive of procedures): Not Applicable
<Kasi Knight DO - Last Filed: 09/04/23 23:56>
Update Note
Update Note:
I evaluated patient at bedside 11:30 PM. The patient has no further symptoms. The initial troponin was borderline elevated 0.039. Repeat was down to 0.034. CTA shows no sign of dissection. I informed patient of this and I also notified her that
she did have gallstones that may be a contributing factor regarding back pain.
ED Attending Note
<Serge Guerra PA-C - Last Filed: 09/04/23 21:00>
-
Portions of this chart may have been created with voice recognition software.� Occasional wrong word or��sound alike� substitutions may have occurred due to the inherent limitations of voice recognition software.
<Silvano Peck MD - Last Filed: 09/04/23 21:33>
ED Attending Note
Patient seen and examined by attending physician: Yes
I performed the substantive portion of visit, reviewed & personally made and approve the management plan that is documented in note by myself or GHANSHYAM.: Yes
ED Attending Note:
63-year-old female recent cardiac stent. Developed nonexertional mid back pain at work today. Lasted from about 1130 to near 2 PM. No chest pain shortness of breath jaw pain. Patient then felt fine till late this afternoon when she had a
recurrent episode. Again now is asymptomatic. Feels different than her recent cardiac symptoms.
On exam patient is nontoxic in no distress. Lungs are clear and equal. Heart regular rate and rhythm no murmur. Abdomen soft and nontender. She is warm and dry. She is perfusing well.
EKG has no acute changes. Nonspecific T wave changes. Troponin is 0.039.... Patient is clinically stable and nontoxic. CT angiography is done because of the back pain. Repeat cardiac testing. Discussed with cardiology. If troponin is trending
down and patient remains asymptomatic she can be discharged for close follow-up. If patient has any recurrence of symptoms or troponin trends up patient will be admitted
Discharge Plan
Departure
Patient Disposition: Home (Routine Discharge)
Date of Disposition: 09/04/23
Time of Disposition: 23:52
Patient with high blood pressure during this ER visit?: Yes
Discharge Problem:
Acute thoracic back pain
Prescriptions:
No Action
alprazolam 0.25 MG tablet
0.125 mg PO DAILYPRN PRN (Reason: anxiety)
Patient Comments:
09/04/2023, pt. filled this med. on 12/13/2022 for 30 tablets according to PDMP.
valsartan [Diovan] 80 mg Tablet
80 mg PO BID
Patient Comments:
09/04/2023, pt. can only have brand name med.
levothyroxine 100 mcg Tablet
100 mcg PO MOTUWETHFR@0800
clobetasol 0.05 % Ointment
1 applic TOPICAL BID PRN (Reason: apply to vaginal area)
cholecalciferol (vitamin D3) 50 mcg (2,000 unit) Tablet
50 mcg PO DAILY
aspirin [aspirin] 81 mg tablet,chewable
81 mg PO DAILY Qty: 1 0RF
metoprolol succinate 25 mg Tablet Extended Release 24 Hr
25 mg PO DAILY Qty: 90 3RF
acetaminophen [Tylenol] 325 mg Tablet
325 mg PO Q4H PRN (Reason: mild pain)
levothyroxine 100 mcg Tablet
50 mcg PO SUSA@0800
valsartan [Diovan] 40 mg Tablet
40 mg PO QPM
Patient Comments:
09/04/2023, pt. can only have brand name med.
Rx Instructions:
09/04/2023, take with 80 mg for a total of 120 mg.
Rescue Remedy liquid
2 drp PO DAILYPRN PRN (Reason: anxiety)
atorvastatin 40 mg tablet
40 mg PO HS
Brilinta 90 mg tablet
90 mg PO DAILY
Patient Comments:
09/04/2023, prescribed BID but pt. takes once daily in the morning.
Referrals:
Ruel Fernandes MD [Active] - Follow up in 5-7 days
Miriam Gregory DO [Family Provider] -
Activity Restrictions/Additional Instructions:
The CAT scan of your thorax shows no sign of aortic dissection. The initial blood cardiac blood test was slightly abnormal but the repeat was normal. It is trending downward so that is a good sign. We did speak to Dr. Fernandes earlier this
evening. Follow-up with him as an outpatient. Return here if worse.
Interventions
Interventions:
*Risk Screen - Suicide Last Done: 09/04/23 19:44
*Neglect/Abuse Screening Last Done: 09/04/23 19:44
ED- Cardiac Assessment Last Done: 09/04/23 20:55
[2023-09-04 20:26] LABS: % Basophils 0.3 % (0-2); % Eosinophils 1.9 % (0-6); % Immature Granulocytes 0.5 % (0-0.5); % Lymphocytes 16.4 % (20.5-51.1); % Monocytes 7.7 % (1.7-9.3); % Neutrophils 73.2 % (42.2-75.2); Absolute Eosinophils 0.2 10^3/uL (0-0.7); Absolute Lymphocytes 1.4 10^3/uL (1.2-3.4); Absolute Monocytes 0.7 10^3/uL (0.1-0.6); Absolute Neutrophils 6.3 10^3/uL (1.4-6.5); Hematocrit 34.4 % (37.0-47.0); Hemoglobin 12.1 g/dL (12.0-16.0); Mean Corp Hgb Conc. 35.2 g/dL (33.0-37.0); Mean Corpuscular Hgb 29.4 pg (27.0-31.0); Mean Corpuscular Volume 83.5 fL (81.0-99.0); Mean Platelet Volume 10.5 fL (7.4-10.4); Nucleated Red Blood Cells % 0 %; Platelet Count 236 10^3/uL (130-400); Red Blood Cell Count 4.12 10^6/uL (4.20-5.40); Red Cell Dist. Width 13.6 % (11.5-14.5); White Blood Cell Count 8.6 10^3/uL (4.8-10.8)
[2023-09-04 20:40] LABS: ALT (SGPT) 27 U/L (0-35); AST (SGOT) 33 U/L (14-36); Albumin 4.8 g/dl (3.5-5.0); Alkaline Phosphatase 101 U/L (38-126); Blood Urea Nitrogen 27 mg/dl (7-17); Calcium 9.4 mg/dl (8.4-10.2); Carbon Dioxide 19 mmol/L (22-30); Chloride 106 mmol/L (98-107); Glucose 102 mg/dl (70-99); Potassium 4.5 mmol/L (3.5-5.1); Sodium 136 mmol/L (135-145); Total Bilirubin 0.7 mg/dl (0.2-1.3); Total Protein 7.4 g/dl (6.3-8.2); eGFR > 60.00
[2023-09-04 20:51] LABS: Troponin I 0.039 ng/ml
[2023-09-04 21:00] VITALS: BP 134/60
[2023-09-04 21:28] VITALS: BP 140/61
[2023-09-04 22:00] VITALS: BP 131/48
[2023-09-04 23:14] VITALS: BP 153/55
[2023-09-04 23:45] LABS: Troponin I 0.034 ng/ml
[2023-09-05] VITALS: BP 141/64
== END 2023-09-05 00:36 | disposition home or self-care (01) ==
LOC: EMR 19:41
PROVIDERS: Emergency Medicine; Physician Assistant Medical; EMERGENCY PHYSICIAN Emergency Medicine; FAMILY PHYSICIAN Student in an Organized Health Care Education/Training Program
DX: M54.6 Pain in thoracic spine (principal); K80.20 Calculus of gallbladder without cholecystitis without obstruction; I10 Essential (primary) hypertension; I25.10 Atherosclerotic heart disease of native coronary artery without angina pectoris; Z95.5 Presence of coronary angioplasty implant and graft
CPT/HCPCS: 99285; 71275; 74174; 80053; 84484; 85025; 93005; Q9967

== ENCOUNTER 2023-10-13 17:30 | Outpatient (RCR) | payer OTHER, SELFPAY | END 2023-10-13 23:59 | disposition home or self-care (01) | LOC: CRHB 17:30 | PROVIDERS: ATTENDING PHYSICIAN Internal Medicine Cardiovascular Disease; FAMILY PHYSICIAN Student in an Organized Health Care Education/Training Program | DX: I21.4 Non-ST elevation (NSTEMI) myocardial infarction (principal); Z95.5 Presence of coronary angioplasty implant and graft; I25.10 Atherosclerotic heart disease of native coronary artery without angina pectoris | CPT/HCPCS: 93798 ==

== ENCOUNTER 2023-10-27 17:43 | Outpatient (RCR) | payer OTHER, SELFPAY | END 2023-10-27 23:59 | disposition home or self-care (01) | LOC: CRHB 17:43 | PROVIDERS: ATTENDING PHYSICIAN Internal Medicine Cardiovascular Disease; FAMILY PHYSICIAN Student in an Organized Health Care Education/Training Program | DX: I25.10 Atherosclerotic heart disease of native coronary artery without angina pectoris (principal); Z95.5 Presence of coronary angioplasty implant and graft; I21.4 Non-ST elevation (NSTEMI) myocardial infarction | CPT/HCPCS: 93798 ==

== ENCOUNTER 2023-12-15 17:32 | Outpatient (RCR) | payer OTHER, SELFPAY | END 2023-12-15 23:59 | disposition home or self-care (01) | LOC: CRHB 17:32 | PROVIDERS: ATTENDING PHYSICIAN Internal Medicine Cardiovascular Disease; FAMILY PHYSICIAN Student in an Organized Health Care Education/Training Program | DX: I21.4 Non-ST elevation (NSTEMI) myocardial infarction (principal); Z95.5 Presence of coronary angioplasty implant and graft; I25.10 Atherosclerotic heart disease of native coronary artery without angina pectoris | CPT/HCPCS: 93798 ==

== ENCOUNTER 2024-01-03 17:46 | Outpatient (RCR) | payer OTHER, SELFPAY | END 2024-01-03 23:59 | disposition home or self-care (01) | LOC: CRHB 17:46 | PROVIDERS: ATTENDING PHYSICIAN Internal Medicine Cardiovascular Disease; FAMILY PHYSICIAN Student in an Organized Health Care Education/Training Program | DX: I25.10 Atherosclerotic heart disease of native coronary artery without angina pectoris (principal); Z95.5 Presence of coronary angioplasty implant and graft; I25.2 Old myocardial infarction | CPT/HCPCS: 93798 ==

== ENCOUNTER → 2024-04-08 09:41 | Outpatient (REF) | payer OTHER, SELFPAY | LOC: WDC 09:41 | PROVIDERS: ATTENDING PHYSICIAN Physician Assistant Medical | DX: R22.2 Localized swelling, mass and lump, trunk (principal); N63.22 Unspecified lump in the left breast, upper inner quadrant | CPT/HCPCS: 76642; 77062; 77066 ==

== ENCOUNTER → 2024-07-26 15:53 | Outpatient (REF) | payer OTHER, SELFPAY | LOC: HWRCS 15:53 | PROVIDERS: ATTENDING PHYSICIAN Internal Medicine Cardiovascular Disease | DX: I25.10 Atherosclerotic heart disease of native coronary artery without angina pectoris (principal); I10 Essential (primary) hypertension; Z95.5 Presence of coronary angioplasty implant and graft | CPT/HCPCS: 93306 ==

== ENCOUNTER → 2024-08-23 10:37 | Outpatient (REF) | payer OTHER, SELFPAY | LOC: RAD 10:37 | PROVIDERS: ATTENDING PHYSICIAN Family Medicine; FAMILY PHYSICIAN Internal Medicine Cardiovascular Disease; REFERRING PHYSICIAN Internal Medicine Gastroenterology | DX: E79.89 Other specified disorders of purine and pyrimidine metabolism (principal); R74.01 Elevation of levels of liver transaminase levels | CPT/HCPCS: 76700 ==

== ENCOUNTER → 2024-10-04 09:41 | Outpatient (REF) | payer OTHER, SELFPAY | LOC: RAD 09:41 | PROVIDERS: ATTENDING PHYSICIAN Internal Medicine Gastroenterology; FAMILY PHYSICIAN Family Medicine | DX: R79.89 Other specified abnormal findings of blood chemistry (principal) | CPT/HCPCS: 74178; Q9967 ==

== ENCOUNTER → 2025-04-04 07:26 | Outpatient (REF) | payer OTHER, SELFPAY | LOC: HWRCS 07:26 | PROVIDERS: ATTENDING PHYSICIAN Internal Medicine Cardiovascular Disease; FAMILY PHYSICIAN Family Medicine | DX: I25.10 Atherosclerotic heart disease of native coronary artery without angina pectoris (principal); I10 Essential (primary) hypertension; Z95.5 Presence of coronary angioplasty implant and graft; R07.89 Other chest pain | CPT/HCPCS: 78452; 93017; A9500 ==

== ENCOUNTER 2025-07-09 09:00 | Observation (INO) | payer OTHER, SELFPAY ==
[2025-07-09] VITALS (9 sets, daily range): BP systolic 113–152; BP diastolic 53–69; BMI 28.7
--- NOTE | 2025-07-09 03:41 | ED.GENMED ---
History of Present Illness
<Tapan Long PA-C - Last Filed: 07/09/25 06:55>
General
Chief Complaint: Abdominal Symptoms
Time Seen by Provider: 07/09/25 03:30
History of Present Illness
History of Present Illness:
65-year-old female with history of CAD status post NE, hypertension, and fibromyalgia presents to the emergency department for evaluation of nausea, abdominal discomfort, and chills. She states that she developed abdominal pain and diarrhea last
week, the diarrhea gradually improved however pain continued. After trying to consume Pedialyte her pain worsened however she has not further. No nausea or vomiting. No history of abdominal surgeries. Saw her primary care physician yesterday and
had outpatient labs that were 'okay' however pain is worsening thus she came to the emergency department for further evaluation. Chills began today
Past History
<Tapan Long PA-C - Last Filed: 07/09/25 06:55>
Past History
ED Past Medical History: Cancer, GERD, HTN, [place], Psychiatric and Other (Patient's her thyroid removed due to cancer, she has had fibromyalgia )
ED Past Surgical History: Orthopedic and Other (The patient has had a spinal fusion, and thyroid surgery due to cancer )
Social History
Tobacco: Non-smoker
Alcohol: None
Drug: None
Personal:
Living: with family
Employment: Employed
Family History
Family History: Other (NA)
Review of Systems
<Tapan Long PA-C - Last Filed: 07/09/25 06:55>
Review of Systems
Allergies reviewed?: Yes
All Other Systems: ROS reviewed and negative except as documented in HPI and ROS
Phy Exam
<Tapan Long PA-C - Last Filed: 07/09/25 06:55>
Physical Exam
Physical Exam:
GEN: Well appearing, NAD, WDWN
HEENT: Oral mucosa moist, no scleral icterus
Cardiac: Regular rate and rhythm, no murmur
Lung: No respiratory distress, no tachypnea
Abdomen: Soft, focal right upper quadrant tenderness, negative Lynn sign
MSK: No gross deformity or injuries
Skin: Good color, no pallor or jaundice, no rashes
Neuro: AO x3, moves all extremities freely
Psych: Calm, cooperative
Course
<Tapan Long PA-C - Last Filed: 07/09/25 06:55>
Orders/Labs/Results
Orders:
Orders
07/09/25 03:40
0.9% Sodium Chloride 1000 ml [Nss] 1,000 ml IV BOLUS
US Abdomen Complete/Upper Urgent
Comment:
Reason For Exam: RUQ pain
07/09/25 03:54
Complete Blood Count/No Diff Urgent
Comprehensive Metabolic Panel Urgent
Direct Bilirubin Urgent
Lipase Urgent
07/09/25 04:46
CT Abd/Pel (IV only)-DH only Urgent
Comment:
Reason For Exam: abd pain, diarrhea, transaminitis
07/09/25 05:29
Add On- LAB Urgent
Tests Added?: direct bilirubin
07/09/25 06:53
Add On- LAB Urgent
Tests Added?: acetaminophen level, CPK
Abnormal Lab Results
07/09/25
03:54
RBC 4.13 L 10^6/uL
(4.20-5.40)
Hct 35.3 L %
(37.0-47.0)
Glucose 110 H mg/dl
(70-99)
Total Bilirubin 2.2 H mg/dl
(0.2-1.3)
Direct Bilirubin 1.0 H mg/dl
(0.0-0.4)
AST 543 H* U/L
(14-36)
ALT 278 H U/L
(0-35)
Alkaline Phosphatase 157 H U/L
(38-126)
07/09/25 03:54
07/09/25 03:54
Vital Signs
Initial and Last Documented VS:
Initial Vital Signs
Temp Pulse BP Pulse Ox
99.3 F 96 146/67 97
07/09/25 03:07 07/09/25 03:07 07/09/25 03:07 07/09/25 03:07
Last Documented Vital Signs
Temp Pulse BP Pulse Ox
99.3 F 96 120/66 99
07/09/25 03:07 07/09/25 03:07 07/09/25 06:04 07/09/25 06:05
<Carlin Brand, DO - Last Filed: 07/09/25 06:40>
Orders/Labs/Results
Orders:
Orders
07/09/25 03:40
0.9% Sodium Chloride 1000 ml [Nss] 1,000 ml IV BOLUS
US Abdomen Complete/Upper Urgent
Comment:
Reason For Exam: RUQ pain
07/09/25 03:54
Complete Blood Count/No Diff Urgent
Comprehensive Metabolic Panel Urgent
Direct Bilirubin Urgent
Lipase Urgent
07/09/25 04:46
CT Abd/Pel (IV only)-DH only Urgent
Comment:
Reason For Exam: abd pain, diarrhea, transaminitis
07/09/25 05:29
Add On- LAB Urgent
Tests Added?: direct bilirubin
07/09/25 06:53
Add On- LAB Urgent
Tests Added?: acetaminophen level, CPK
Abnormal Lab Results
07/09/25
03:54
RBC 4.13 L 10^6/uL
(4.20-5.40)
Hct 35.3 L %
(37.0-47.0)
Glucose 110 H mg/dl
(70-99)
Total Bilirubin 2.2 H mg/dl
(0.2-1.3)
Direct Bilirubin 1.0 H mg/dl
(0.0-0.4)
AST 543 H* U/L
(14-36)
ALT 278 H U/L
(0-35)
Alkaline Phosphatase 157 H U/L
(38-126)
07/09/25 03:54
07/09/25 03:54
Vital Signs
Initial and Last Documented VS:
Initial Vital Signs
Temp Pulse BP Pulse Ox
99.3 F 96 146/67 97
07/09/25 03:07 07/09/25 03:07 07/09/25 03:07 07/09/25 03:07
Last Documented Vital Signs
Temp Pulse BP Pulse Ox
99.3 F 96 120/66 99
07/09/25 03:07 07/09/25 03:07 07/09/25 06:04 07/09/25 06:05
<Tapan Long PA-C - Last Filed: 07/09/25 06:55>
MDM/Problems Addressed
MDM/Problems Addressed:
Lack of imaging findings would suggest that the transaminitis is secondary to recently initiated statin. Given history of milligrams yesterday, the rapid rise with elevated total bilirubin is concerning I will admit the patient to the hospitalist
service for further LFT trending. She has been taking acetaminophen 1 dose daily as well as acetaminophen poisoning is highly unlikely. Denies alcohol use.
<Tapan Long PA-C - Last Filed: 07/09/25 06:55>
*Pulse Oximetry
SaO2: 97
Patient hypoxic: no
<Carlin Brand DO - Last Filed: 07/09/25 06:40>
*Critical Care Note
Total Time (30-74mins, 75-104mins- exclusive of procedures): Not Applicable
ED Attending Note
<Tapan Long PA-C - Last Filed: 07/09/25 06:55>
-
Portions of this chart may have been created with voice recognition software.� Occasional wrong word or��sound alike� substitutions may have occurred due to the inherent limitations of voice recognition software.
<Carlin Brand DO - Last Filed: 07/09/25 06:40>
ED Attending Note
Patient seen and examined by attending physician: Yes
I performed the substantive portion of visit, reviewed & personally made and approve the management plan that is documented in note by myself or GHANSHYAM.: Yes
ED Attending Note:
65-year-old female with abdominal pain and elevated transaminases. Patient to be admitted to the hospitalist service. Patient has had elevated labs in the past. Has followed up with Dr. Fernandes, Dr. Mancera from gastroenterology, and her family
doctor. At the time it was determined that atorvastatin might have been the culprit. She stopped the atorvastatin and lab work returned to normal. Patient states that she recently restarted the atorvastatin at the advice of her
gas turbine mechanic. She also states that she had 'normal 'lab work yesterday but cannot produce the lab information as it was done at an outside lab. This is concerning with the elevated transaminases today.
Discharge Plan
Departure
Patient Disposition: Admit
Date of Disposition: 07/09/25
Time of Disposition: 06:54
Admit to: Med/Surg
Presentation/result/management discussed w/ accepting MD/DO: Hospitalist
Discharge Problem:
Transaminitis
Prescriptions:
No Action
alprazolam 0.25 MG tablet
0.125 mg PO DAILYPRN PRN (Reason: anxiety)
Patient Comments:
09/04/2023, pt. filled this med. on 12/13/2022 for 30 tablets according to PDMP.
valsartan [Diovan] 80 mg Tablet
80 mg PO BID
Patient Comments:
09/04/2023, pt. can only have brand name med.
levothyroxine 100 mcg Tablet
100 mcg PO MOTUWETHFR@0800
clobetasol 0.05 % Ointment
1 applic TOPICAL BID PRN (Reason: apply to vaginal area)
cholecalciferol (vitamin D3) 50 mcg (2,000 unit) Tablet
50 mcg PO DAILY
aspirin [aspirin] 81 mg tablet,chewable
81 mg PO DAILY Qty: 1 0RF
metoprolol succinate 25 mg Tablet Extended Release 24 Hr
25 mg PO DAILY Qty: 90 3RF
acetaminophen [Tylenol] 325 mg Tablet
325 mg PO Q4H PRN (Reason: mild pain)
levothyroxine 100 mcg Tablet
50 mcg PO SUSA@0800
valsartan [Diovan] 40 mg Tablet
40 mg PO QPM
Patient Comments:
09/04/2023, pt. can only have brand name med.
Rx Instructions:
09/04/2023, take with 80 mg for a total of 120 mg.
Rescue Remedy liquid
2 drp PO DAILYPRN PRN (Reason: anxiety)
atorvastatin 40 mg tablet
40 mg PO HS
Brilinta 90 mg tablet
90 mg PO DAILY
Patient Comments:
09/04/2023, prescribed BID but pt. takes once daily in the morning.
Referrals:
Silvano Bazzi DO [Family Provider, Family Practice]
Interventions
Interventions:
*General Assessment Last Done: 07/09/25 04:07
*Neglect/Abuse Screening Last Done: 07/09/25 03:13
*ED COVID-19 Vaccine History Last Done: 07/09/25 03:13
*ED Influenza Vaccine History Last Done: 07/09/25 03:13
[facility] Risk Assessment Tool Last Done: 07/09/25 04:07
*Risk Screen - Suicide (C-SSRS) Last Done: 07/09/25 04:07
BY-[id number]-Zofthelpgf Assessment Last Done: 07/09/25 04:04
Discharge Date and Time
Print Language: ESTONIAN
[2025-07-09] MEDS: NSS 1000 IV (03:57)
[2025-07-09 04:21] LABS: Hematocrit 35.3 % (37.0-47.0); Hemoglobin 12.1 g/dL (12.0-16.0); Mean Corp Hgb Conc. 34.3 g/dL (33.0-37.0); Mean Corpuscular Volume 85.5 fL (81.0-99.0); Platelet Count 146 10^3/uL (130-400); Red Cell Dist. Width 13.1 % (11.5-14.5)
[2025-07-09 04:43] LABS: ALT (SGPT) 278 U/L (0-35); AST (SGOT) 543 U/L (14-36); Albumin 4.3 g/dl (3.5-5.0); Alkaline Phosphatase 157 U/L (38-126); Blood Urea Nitrogen 14 mg/dl (7-17); Calcium 9.1 mg/dl (8.4-10.2); Carbon Dioxide 22 mmol/L (22-30); Chloride 105 mmol/L (98-107); Glucose 110 mg/dl (70-99); Lipase 75 U/L (23-300); Potassium 3.7 mmol/L (3.5-5.1); Sodium 135 mmol/L (135-145); Total Protein 6.9 g/dl (6.3-8.2); eGFR > 60.00
[2025-07-09 07:40] LABS: Acetaminophen < 10 ug/ml (10-30)
[2025-07-09 07:50] LABS: INR 1.24; PT 15.4 Sec (11.4-14.6)
--- NOTE | 2025-07-09 07:55 | HPS.HSE ---
Family Physician
-
Family Physician: Silvano Bazzi
Chief Complaint
-
abdominal pain
History of Present Illness
65yo F with PMHx of CAD s/p IA and PCI, HepC positive Ab, anxiety, HTN, thyroid CA s/p resection with postOP hypothyroidism came with c/o recurrent abdominal pain, mostly post-prandial, started after she had 3 days of yellow diarrhea after eating
small amount of cheese cake 5 days before admission. Since then due to recurrent abd pain and nausea- she was not able to consume much f the food. She went to see her PCP a day before and was told to hydrate with Pedialyte and that her labs were
without abnormality. In ED found transaminitis. Due to significant pain that patient had right after drinking Pedialyte - she came to ED. HEr diarrhea stopped a day before. In ED found elevated LFT and her US RUQ and CT abd/pelvis was without any
significant abnormalities.
Patient has a Hx of elevated liver enzymes and was previously followed by for that and reportedly her LFT normalized after cessation of Atorvastatin. SHe saw her GI recently who allowed her to restart this medication, which she did
approximately a month ago.
Medical History
Past Medical History
Past Medical History: Reports Other
Additional Past Medical History:
see HPI
Past Surgical History: Reports Other
Additional Past Surgical History:
See HPI
Social History
Tobacco: Non-smoker
Alcohol: None
Drug: None
Family History
Family History: Not pertinent
Allergies / Home Medications
Allergies reflects when Allergies were last updated in [facility].
Home Medications with original date entered in [facility]
Allergy/Medication List:
Allergies
Allergy/AdvReac Type Severity Reaction Status Date / Time
acetaminophen (From Percocet) Allergy Unknown Verified 07/09/25 03:12
meperidine (From Demerol) Allergy Unknown Verified 07/09/25 03:12
oxycodone (From Percocet) Allergy Unknown Verified 07/09/25 03:12
pentazocine (From Talwin) Allergy Unknown Verified 07/09/25 03:12
Home Medications
alprazolam 0.25 mg tablet 0.125 mg PO DAILYPRN PRN anxiety 08/17/19
aspirin 81 mg chewable tablet 81 mg PO DAILY #1 tab 08/23/23
cholecalciferol (vitamin D3) 50 mcg (2,000 unit) tablet 50 mcg PO DAILY Supplement 08/23/23
clobetasol 0.05 % topical ointment 1 applic topical BID PRN apply to vaginal area 08/23/23
levothyroxine 100 mcg tablet 100 mcg PO MOTUWETHFR@0800 Thyroid 08/23/23
valsartan 80 mg tablet (Diovan) 80 mg PO BID Blood Pressure 08/23/23
metoprolol succinate 25 mg tablet,extended release 24 hr 25 mg PO DAILY #90 tabs 08/25/23
Rescue Remedy 2 drp PO DAILYPRN PRN anxiety 09/04/23
acetaminophen 325 mg tablet (Tylenol) 325 mg PO Q4H PRN mild pain 09/04/23
atorvastatin 40 mg tablet 40 mg PO HS 09/04/23
levothyroxine 100 mcg tablet 50 mcg PO SUSA@0800 09/04/23
ticagrelor 90 mg tablet (Brilinta) 90 mg PO DAILY 09/04/23
valsartan 40 mg tablet (Diovan) 40 mg PO QPM 09/04/23
Review of Systems
-
History Source: Patient
A 12 point ROS was completed and negative except as noted: Yes
Abdomen/GI: Reports See HPI
Physical Exam
Vital Signs
Vital Signs
Temp Pulse Resp BP Pulse Ox
100 F 76 15 150/64 99
07/09/25 07:33 07/09/25 07:33 07/09/25 07:33 07/09/25 07:33 07/09/25 07:33
Physical Exam
General: Well Developed, Well Nourished and No Apparent Distress
Respiratory: Clear; No Wheezes or Crackles
Cardiac: S1/S2 and Regular Rhythm; No Murmur
GI: Soft, Non Tender, Non Distended and Normal Bowel Sounds
Genito-urinary: No costovertebral tender
Musculoskeletal: No Clubbing, No Cyanosis and No Edema
Skin: Warm; No Rash or Jaundice
Neuro: Awake, Alert, Oriented, AO x 3 and No Motor Deficits
Psych: Calm
Laboratory Results
-
07/09/25 03:54
07/09/25 03:54
Laboratory Results
Total Bilirubin 2.2 mg/dl (0.2-1.3) H 07/09/25 03:54
AST 543 U/L (14-36) H* 07/09/25 03:54
ALT 278 U/L (0-35) H 07/09/25 03:54
Alkaline Phosphatase 157 U/L (38-126) H 07/09/25 03:54
Lipase 75 U/L (23-300) 07/09/25 03:54
Data Reviewed
-
CT Scan: Report Reviewed by me
Ultrasound: Report Reviewed by me
Lab Data: Labs Reviewed by me
Impression/Plan
-
A/P:
#Episodic abdominal pain, postprandial started with recent diarrhea that already subsided
No indication for stool Cx since diarrhea subsided
No abnormalities on imaging
Lipase WNL
advance diet and follow for recurrence of the symptoms on observation, will get GI opinion if persistent symptoms, but suspect recovery from gastroenteritis
#Elevated bilirubin
#Transaminitis
#Elevated alk.phos
#Hx of HepC positive Ab
#Hx of statin intolerance
US with normal CBD (4mm) and no signs of cholecystitis
Follow LFT off statin
Repeat hepatitis panel
INR 1.24 - function is not impaired
Patient reported only 1 dose Tylenol 650mg over past 3 days
Outpatient follow up with GI if no further worsening
Will discuss with over the phone
#CAD s/p PCI
work with marketing project lead on alternative lipid mgmt meds
cont ASA and toprol
#Essential HTN
#Hypothyroidism
#Anxiety d/o
cont home meds
check TSH
#PAtient reported episode of chills
Complete w/u with UA, Chest XR, Bcx, COVID-19 and Influenza PCR
DVT ppx hep
Full code
I have spent at least 78min reviewing chart, test results, communication with ED and providing direct patient care
[2025-07-09 08:03] LABS: COVID-19 Antigen Negative (Negative)
[2025-07-09 08:50] LABS: Urine Character Clear (Clear)
[2025-07-09 09:26] LABS: Troponin I < 0.012 ng/ml
--- NOTE | 2025-07-09 12:00 | PTCARENOTE ---
Pt admitted to rm 336-1 from ED. Ambulated to bed from stretcher. Discussed needs brand name briseyda Peraza MD allowed pt to take own meds. Pt's to bring briseyda in from home. POC explained, verbalized understandign of all instructions. Abdominal
pain currently reported 3/10 - reports very tolerable.
[2025-07-09] MEDS: PROTONIX 40 MG PO (12:29)
[2025-07-09 13:07] LABS: TSH 3.70 uIU/ml (0.47-4.68)
--- NOTE | 2025-07-09 16:00 | PTCARENOTE ---
brought pt's prepoured weekly pill contained. Pt informed that meds need to be in labeled bottle in order to be sent to pharmacy. Pt had already took today's dose of diovan but instructed not to take any more as we would be providing
medications now - reviewed ordered meds and times to expect.
[2025-07-09] MEDS: HEPARIN 5000 UNITS SC ×2 (16:42→23:00)
[2025-07-09] MEDS: TYLENOL 650 MG PO (16:43)
[2025-07-10] MEDS: SYNTHROID 100 MCG PO (05:42)
[2025-07-10 07:05] VITALS: BP 124/60
[2025-07-10] MEDS: TYLENOL 650 MG PO (07:36)
[2025-07-10] MEDS: PROTONIX 40 MG PO (07:36)
[2025-07-10] MEDS: TOPROL XL 25 MG PO (07:36)
[2025-07-10] MEDS: LOW STRENGTH ASPIRIN 81 MG PO (07:36)
[2025-07-10] MEDS: HEPARIN 5000 UNITS SC ×2 (07:36→15:39)
[2025-07-10 08:47] LABS: Hematocrit 33.9 % (37.0-47.0); Hemoglobin 11.5 g/dL (12.0-16.0); Mean Corp Hgb Conc. 33.9 g/dL (33.0-37.0); Mean Corpuscular Volume 86.5 fL (81.0-99.0); Nucleated Red Blood Cells % 0 %; Platelet Count 133 10^3/uL (130-400); Red Cell Dist. Width 13.5 % (11.5-14.5)
[2025-07-10 09:06] LABS: ALT (SGPT) 339 U/L (0-35); AST (SGOT) 330 U/L (14-36); Albumin 3.9 g/dl (3.5-5.0); Alkaline Phosphatase 175 U/L (38-126); Blood Urea Nitrogen 14 mg/dl (7-17); Calcium 9.1 mg/dl (8.4-10.2); Carbon Dioxide 26 mmol/L (22-30); Chloride 106 mmol/L (98-107); Estimated Creatinine Clearance 48 ml/min; Glucose 101 mg/dl (70-99); Potassium 4.1 mmol/L (3.5-5.1); Sodium 139 mmol/L (135-145); Total Protein 6.6 g/dl (6.3-8.2); eGFR > 60.00
--- NOTE | 2025-07-10 10:37 | CON.GI ---
Addendum entered and electronically signed by Yenny Daniel Do, MD 07/10/25 15:21:
I saw and evaluated the patient. I reviewed the resident�s note and agree with findings and plan as documented in the resident�s note.
Tsering is a 65yo W with h/o CAD s/p stent and HTN who presents for acute epigastric abd pain and elevated LFTs. She does not drink milk and her mother is lactose intolerance. made her homemade cheese cake and she ate that. After wards
severe abd pain and diarrhea. Now all that resolved. She did recently see Dr Mancera in Mar 2025 for h/o elevated LFTs that had improved. Remote h/o hep C antigen + but RNA viral load negative. Vitals stable exam obese abd NTTP, NABS anxious
appearing. Labs reviewed platelets 130s with elevated AST/ALT and AP. Imaging Abd US and CT with IV contrast not remarkable. No biliary dilation
Impression
- Acute epigastric abd pain
CTAP IV contrast and Abd US not remarkable
Now resolved. Suspect lactose intolerance after eating cheesecake
Other consideration is passed gallstone vs dyspepsia
- Elevated LFTs
Ddx includes acetaminophen use vs passed gallstones
She had significant liver workup in past: ALANNA, ceruloplasmin, alpha-1 antitrypsin, SLA, smooth muscle antibody, LKM antibody which are all negative
- Hepatitis C antigen + but viral RNA load negative
- Fibromyalgia
- IBS
- CAD s/p stent
- HTN
- Remote thyroid ca
Recommendations
- Adv to regular diet
- Recommend to avoid lactose or use lactaid OTC PRN basis
- Trend LFTs if improves anticipate hosp d/c tomorrow
- Check tylenol level, advise her to cut back on use as may be contributor to LFT rise
- She can FU with Dr Mancera OP basis
Will follow with you
Original Note:
Consultation
-
Date/Time Consultation Requested: 07/10/25, 9.23am
Date/Time Consultation Performed: 07/10/25, 10.30am
Requesting Provider: Pankaj Archibald MD
Performing Provider: Loreto Groves MD for Do, MD Yenny
Reason for Consultation: Transminitis
Medical History
Chief Complaint / HPI
Chief Complaint: Abdominal pain
History of Present Illness:
65-year-old female with past medical history significant for ASCVD, GA s/p PCI, essential hypertension, remote history of thyroid carcinoma status post resection of thyroid (30 years ago), hep C antibodies, anxiety, postop hypothyroidism presents to
the hospital for evaluation of recurrent abdominal pain. Patient states that her abdominal pain started on Monday in the a.m. which was about 8-9/10 in intensity and is present in the right upper and left upper quadrants, nonradiating and
intermittent in nature. She cannot cook, and buys premade meals, and eats multiple salads except for on the weekends when her preps her food. On Monday a.m., she ate homemade chicken salad with some Parmesan cheese dressing with some
homemade cheesecake after which she had about 5 episodes of yellow watery diarrhea with subsided into Monday morning. She did not have any abdominal pain during the diarrheal episode. Her abdominal pain that started on Monday was associated
with rigors and chills, shakiness at least when she presented in the ER. She also had some associated nausea but denies any vomiting. During the peak pain she felt sensation of something stuck in her upper chest probably food but did not feel the
urge to clear her throat or did not choke on food. She denies having rectal pain, bloating, belching, constipation. Her last bowel movement was on Monday, and she has not had any solids since Monday night but reports to be having urine output.
She reports that her urine is yellow/orange in color with a mix of red. Nurse Han checked her urine and thinks she had blood in the urine. Her UA is pending. abdominal pain is about 2/10 in intensity and she feels so good that she does not
know why she is in the hospital.
She saw Dr. Mancera in March 2025, her LFTs were normalized back then and she was cleared to use Tylenol and statins. Her corporate tax manager resumed statins in April 2025, however she reports to be noncompliant with statins, and over the last 1
months she started taking her statins regularly with dinner. In August/September 2024 patient had elevated liver enzymes from statins after her GA, and she was worked up for her hepatitis panel and she was found to be hepatitis C antibody positive.
(She reports she was initially diagnosed with hepatitis C antibody positive after her blood transfusion about 40 years ago when she had her spinal fusion).
She always had baseline diarrheal episodes for which there is some suspicion for ongoing microscopic colitis, patient never had colonoscopy, and is prepping her mind to schedule. Her celiac testing in March was negative.
upon arrival to the ER, her vital signs are stable, she has no tachypnea or tachycardia, found to be afebrile, satting normal on room air. Her RBC count was at 12.1 with an MCV of 86.5, platelet count of 133 with elevated neutrophils at 84.2 with
no left shift. Her electrolytes are within normal limits. Her total bilirubin upon arrival was 2.2 currently at 4.1, AST, is at 543 upon arrival currently at 330, ALT is at 278 upon arrival, currently at 339, alk phos is at 157 upon arrival now at
175.
Her ultrasound and CT abdomen and pelvis upon arrival to the ER showed no acute abnormalities.
Past Medical History
Past Medical History: Other ( ASCVD, GA s/p PCI, essential hypertension, remote history of thyroid carcinoma status post resection of thyroid (30 years ago), hep C antibodies, anxiety, postop hypothyroidism)
Past Surgical History: Other (L4-L5 bilateral spinal fusion, thyroidectomy, PCI (June 2024), wrist surgery.)
Social History
Tobacco: Non-Smoker
Alcohol: None (Used to drink half of beer once in 15 days to a month, socially but quit.)
Drug: None
Personal:
Living: With Family
Employment: Employed
Family History
Family History: Reviewed & Not Pertinent
Allergies / Home Medications
Allergy/AdvReac Type Severity Reaction Status Date / Time
acetaminophen (From Percocet) Allergy Unknown Verified 07/09/25 03:12
meperidine (From Demerol) Allergy Unknown Verified 07/09/25 03:12
oxycodone (From Percocet) Allergy Unknown Verified 07/09/25 03:12
pentazocine (From Talwin) Allergy Unknown Verified 07/09/25 03:12
�Medication �Instructions �Recorded
alprazolam 0.25 mg tablet 0.125 mg PO BID Mental 08/17/19
Health/Anxiety
cholecalciferol (vitamin D3) 50 50 mcg PO DAILY Supplement 08/23/23
mcg (2,000 unit) tablet
levothyroxine 100 mcg tablet 100 mcg PO MOTUWETHFR Thyroid 08/23/23
valsartan 80 mg tablet (Diovan) 80 mg PO BID Blood Pressure 08/23/23
Rescue Remedy 2 drp PO DAILY Supplement 09/04/23
levothyroxine 100 mcg tablet 50 mcg PO SUSA Thyroid 09/04/23
valsartan 40 mg tablet (Diovan) 40 mg PO QPM Blood Pressure 09/04/23
Phazyme 1 tab PO DAILYPRN PRN gas 07/09/25
acetaminophen 650 mg 650 mg PO BIDPRN PRN mild pain 07/09/25
tablet,extended release (Tylenol
Arthritis Pain)
aspirin 81 mg tablet,delayed 81 mg PO DAILY Blood Clot 07/09/25
release Prevention/Tx
atorvastatin 20 mg tablet 20 mg PO QPM High Cholesterol 07/09/25
metoprolol succinate 25 mg 25 mg PO DAILY Blood Pressure 07/09/25
tablet,extended release 24 hr
prochlorperazine maleate 5 mg 5 mg PO Q8HPRN PRN nausea/vomiting 07/09/25
tablet
Review of Systems
-
History Source: Patient
Constitutional: Reports Fatigue and Chills
EENT: Reports No Symptoms
Respiratory: Reports No Symptoms
Cardiac: Reports No Symptoms
Abdomen/GI: Reports Abdominal Pain, Nausea and Diarrhea
: Reports Frequency and Bleeding
Musculoskeletal: Reports No Symptoms
Skin: Reports No Symptoms
Neurological: Reports No Symptoms
Endocrine: Reports No Symptoms
Hematologic/Lymphatic: Reports No Symptoms
Vital Signs
Temp Pulse Resp BP Pulse Ox
98.5 F 72 19 124/60 97
07/10/25 07:05 07/10/25 07:05 07/10/25 07:05 07/10/25 07:05 07/10/25 07:45
Physical Exam
Exam
General: No Apparent Distress and Comfortable
HEENT: Moist Mucous Membranes; Negative Anicteric (icteric)
Respiratory: Clear; Negative Wheezes, Rales or Rhonchi
Cardiac: S1/S2 and Regular Rhythm; Negative Murmur or Rub
GI: Soft, Non Tender, Non Distended, Normal Bowel Sounds and Other (tympanic to percussion, no skin changes); Negative Organomegaly
Genito-urinary: No Costovertebral Tender
Musculoskeletal: No Clubbing
Skin: Warm
Neuro: AO x 3
Hematologic/Lymphatic: No Lymphadenopathy
Psych: Calm
Results
WBC 4.9 10^3/uL (4.8-10.8) 07/10/25 07:40
Hgb 11.5 g/dL (12.0-16.0) L 07/10/25 07:40
Hct 33.9 % (37.0-47.0) L 07/10/25 07:40
MCV 86.5 fL (81.0-99.0) 07/10/25 07:40
Plt Count 133 10^3/uL (130-400) 07/10/25 07:40
Absolute Neuts (auto) 4.2 10^3/uL (1.4-6.5) 07/10/25 07:40
PT 15.4 Sec (11.4-14.6) H 07/09/25 07:31
INR 1.24 07/09/25 07:31
Sodium 139 mmol/L (135-145) 07/10/25 07:40
Potassium 4.1 mmol/L (3.5-5.1) 07/10/25 07:40
Chloride 106 mmol/L (98-107) 07/10/25 07:40
Carbon Dioxide 26 mmol/L (22-30) 07/10/25 07:40
BUN 14 mg/dl (7-17) 07/10/25 07:40
Creatinine 1.0 mg/dL (0.6-1.0) 07/10/25 07:40
Calcium 9.1 mg/dl (8.4-10.2) 07/10/25 07:40
Total Bilirubin 4.1 mg/dl (0.2-1.3) H D 07/10/25 07:40
AST 330 U/L (14-36) H 07/10/25 07:40
ALT 339 U/L (0-35) H 07/10/25 07:40
Alkaline Phosphatase 175 U/L (38-126) H 07/10/25 07:40
Lipase 75 U/L (23-300) 07/09/25 03:54
Diagnostic Image Results:
Chest X ray -
IMPRESSION: No radiographic evidence of acute cardiopulmonary abnormality.
CT abdomen and pelvis on 07/09/2025-
1.1 cm benign-appearing splenic probable cyst or hemangioma. No acute abnormality identified in abdomen or pelvis.
Abdominal ultrasound-07/09/2025-
no gallstones no gallbladder wall thickening no pericholecystic fluid no sonographic Lynn sign, no intrahepatic or extrahepatic biliary obstruction with visualized portion of the common bile duct measuring�millimeter.
CT abdomen and pelvis on 10/04/2024-IMPRESSION:
1. Normal CT appearance of the liver.
2. Interposition of the colon between the anterior abdominal wall and the liver, anatomic variation (Chilaiditi syndrome if there are associated symptoms).
3. Small hiatal hernia.
Prior GI Procedures:
EGD:
Colonoscopy:
Assessment / Plan
-
[id number]-old female with PMHx significant for ASCVD, GA s/p PCI, essential hypertension, remote history of thyroid carcinoma status post resection of thyroid (30 years ago), hep C antibodies, anxiety, postop hypothyroidism. Presents to the
ER for evaluation of acute abdominal pain. She is diagnosed to be having transaminitis and is admitted for further evaluation. GI is consulted for workup of her ongoing transaminitis.
Problem list-
# Jaundice
# Transaminitis
# Elevated alkaline phosphatase levels
# History of IBS
# History of statin induced liver injury.
# ASCVD, GA s/p PCI
# Hep C positive antibodies.
# Small hiatal hernia
Recommendations-
Her jaundice, transaminitis and elevated alkaline phosphatase levels are consistent with hepatocellular injury pattern (R factor -6.6). With ongoing hematuria, we we will obtain further workup with direct bilirubin levels, haptoglobin, reticulocyte
counts and LDH levels. Agree with holding statins for now given her previous history of statin induced liver injury. Agree with hepatitis panel given her history of hepatitis C positive antibodies. Other possible differentials include autoimmune
hepatitis, ischemic liver injury will obtain further workup if the initial workup is negative.
Ultrasound of the liver showed no acute abnormalities, common bile duct at about 4 mm, CT abdomen and pelvis showed no abnormalities that were acute at this visit, CT abdomen and pelvis in September is consistent for small hiatal hernia and Chilaiditi
sign.
Patient is having her appetite back, will advance her diet to solids. No indications for EGD at this time.
GI will continue to follow the patient.
-
-
Thank you for consultation and allowing me to participate in the patient's care. Please call the station operator GI physician during the after hours with any questions or concerns.
--- NOTE | 2025-07-10 10:46 | W.PN.HOSP.TC ---
Today's Communication/Plan
-
follow LFT
hold statin
GI consult
Check LDH
recheck UA
Assessment / Plan
Assessment / Plan
65yo F with PMHx of CAD s/p ND and PCI, HepC positive Ab, anxiety, HTN, thyroid CA s/p resection with postOP hypothyroidism came with c/o recurrent abdominal pain, started with diarrhea and currently subsiding. Also found elevated LFT, probably 2/2
statin. Later c/o red urine, concerning for hematuria
A/P:
#Episodic abdominal pain, postprandial started with recent diarrhea that already subsided
No indication for stool Cx since diarrhea subsided
No abnormalities on imaging
Lipase WNL
advance diet and follow for recurrence of the symptoms on observation
#Elevated bilirubin, mixed
#Transaminitis
#Elevated alk.phos
#Hx of HepC positive Ab
#Hx of statin intolerance
US with normal CBD (4mm) and no signs of cholecystitis
Follow LFT off statin
Repeat hepatitis panel
INR 1.24 - function is not impaired
Patient reported only 1 dose Tylenol 650mg over past 3 days
GI consult
CHeck retics, haptoglobin, LDH
#Concern for hematuria
only 3-5 RBC on UA in ED, most likely 2/2 bilirubin
Repeat UA, if evelyn blood - will get urology
#CAD s/p PCI
work with aeronautical drafter on alternative lipid mgmt meds
cont ASA and toprol
#Essential HTN
#Hypothyroidism
#Anxiety d/o
cont home meds
check TSH
#PAtient reported episode of chills
UA, Chest XR, Bcx, COVID-19 and Influenza PCR neg for acute infection
DVT ppx hep
Full code
I have spent at least 59min reviewing chart, test results, communication with ED and providing direct patient care
Anticipated Discharge: 24 - 48 hours
Subjective/Interval History
-
Date of Service: July 10, 2025
Objective Data
-
Labs:
Laboratory Results
07/10/25
07:40
WBC 4.9
Hgb 11.5 L
Hct 33.9 L
Plt Count 133
Sodium 139
Potassium 4.1
Chloride 106
Carbon Dioxide 26
BUN 14
Creatinine 1.0
Glucose 101 H
Calcium 9.1
Total Bilirubin 4.1 H D
AST 330 H
ALT 339 H
Alkaline Phosphatase 175 H
Vital Signs:
Vital Signs
Temp Pulse Resp BP Pulse Ox
98.5 F 72 19 124/60 97
07/10/25 07:05 07/10/25 07:05 07/10/25 07:05 07/10/25 07:05 07/10/25 07:45
I&O
07/09/25 07/10/25 07/11/25
06:59 06:59 06:59
Intake Total 480 / 480
Balance 480 / 480
Review of Systems
-
History Source: Patient
All other systems: Reviewed and negative
Physical Exam
-
General: No Apparent Distress
HEENT: Normocephalic
Neuro: Awake, Alert, Oriented and AO x 3
Psych: Calm
[2025-07-10 11:24] LABS: Reticulocyte Count 0.8 % (0.4-2.8)
[2025-07-10 11:37] LABS: LDH 309 U/L (120-246)
--- NOTE | 2025-07-10 12:45 | W.PN.UPDATE ---
Update Note
Progress Note Update
as per urine review bedside (RN forwarded a photo) - no overt hematuria, color is light brown consistent with bilirubin
[2025-07-10 13:37] LABS: Urine Character Slightly Cloudy (Clear)
[2025-07-10 15:05] VITALS: BP 127/65
[2025-07-10] MEDS: NON-FORMULARY ITEM PO ×3 (15:32→15:34)
[2025-07-10 20:05] LABS: Hepatitis B Surface Antigen Negative (Negative)
[2025-07-10 20:23] LABS: Hepatitis C Antibody Negative (Negative)
[2025-07-10] MEDS: NON-FORMULARY ITEM 1 UNIT PO ×2 (20:40)
[2025-07-10 23:00] VITALS: BP 137/61
[2025-07-11] MEDS: HEPARIN 5000 UNITS SC ×2 (00:54→09:08)
[2025-07-11] MEDS: XANAX 0.125 MG PO (02:20)
[2025-07-11 07:37] LABS: INR 1.07; PT 13.8 Sec (11.4-14.6)
[2025-07-11 07:41] VITALS: BP 165/70
[2025-07-11] MEDS: SYNTHROID 100 MCG PO (07:49)
[2025-07-11 08:06] LABS: ALT (SGPT) 246 U/L (0-35); AST (SGOT) 149 U/L (14-36); Acetaminophen < 10 ug/ml (10-30); Albumin 3.8 g/dl (3.5-5.0); Alkaline Phosphatase 192 U/L (38-126); Total Protein 6.3 g/dl (6.3-8.2)
[2025-07-11 08:10] LABS: Hematocrit 32.5 % (37.0-47.0); Hemoglobin 11.1 g/dL (12.0-16.0); Mean Corp Hgb Conc. 34.2 g/dL (33.0-37.0); Mean Corpuscular Volume 85.8 fL (81.0-99.0); Nucleated Red Blood Cells % 0 %; Platelet Count 134 10^3/uL (130-400); Red Cell Dist. Width 13.4 % (11.5-14.5)
[2025-07-11] MEDS: PROTONIX 40 MG PO (09:08)
[2025-07-11] MEDS: LOW STRENGTH ASPIRIN 81 MG PO (09:08)
[2025-07-11] MEDS: TOPROL XL 25 MG PO (09:08)
[2025-07-11] MEDS: NON-FORMULARY ITEM 1 UNIT PO (09:08)
--- NOTE | 2025-07-11 09:16 | W.PN.HOSP.TC ---
Today's Communication/Plan
-
dc
Assessment / Plan
Assessment / Plan
65yo F with PMHx of interstitial cystitis, CAD s/p AL and PCI, HepC positive Ab, anxiety, HTN, thyroid CA s/p resection with postOP hypothyroidism came with c/o recurrent abdominal pain, started with diarrhea and currently subsiding. Also found
elevated LFT, probably 2/2 statin. LFT improved, advised outpatient f/u with established GI , stop statin, discuss with fire equipment repairer inspector alternative lipid-lowering therapy.
Tolerated solid food well, GI cannot exclude lactose intolerance too - advised low lactose diet. No episodes of diarrhea in hospital. Microhematuria advised to be followed with established urology. Medically stable to be d/c home
A/P:
#Episodic abdominal pain, postprandial started with recent diarrhea that already subsided
No indication for stool Cx since diarrhea subsided
No abnormalities on imaging
Lipase WNL
advance diet and follow for recurrence of the symptoms on observation
#Elevated bilirubin, mixed
#Transaminitis
#Elevated alk.phos
#Hx of HepC positive Ab
#Hx of statin intolerance
#1.1 cm benign-appearing splenic probable cyst or hemangioma
US with normal CBD (4mm) and no signs of cholecystitis
Follow LFT off statin
hepatitis panel neg for acute hepatitis
INR remains WNL
Patient reported only 1 dose Tylenol 650mg over past 3 days
GI consult: had extensive outpatient w/u, probably abnormality 2/2 statin - stop and schedule appt with Telegraph And Teletype Operator for alternative lipid-lowering therapy
LDH mildly increased but Rupa neg, minimal anemia - no concern for hemolysis
#microhematuria
#Hx of interstitial cystitis
Was previously following in Urology office in [facility] - recommended to schedule appt for further microhematuria w/u there
only 3-5 RBC on UA in ED, most likely 2/2 bilirubin
Repeat UA, if evelyn blood - will get urology
#CAD s/p PCI
work with fire equipment repairer inspector on alternative lipid mgmt meds
cont ASA and toprol
#Essential HTN
#Hypothyroidism
#Anxiety d/o
cont home meds
check TSH
#PAtient reported episode of chills
UA, Chest XR, Bcx, COVID-19 and Influenza PCR neg for acute infection
DVT ppx hep
Full code
I have spent at least 36min reviewing chart, test results, communication with ED and providing direct patient care
Anticipated Discharge: Today
Subjective/Interval History
-
Date of Service: July 11, 2025
Objective Data
-
Labs:
Laboratory Results
07/11/25
06:58
WBC 3.5 L
Hgb 11.1 L
Hct 32.5 L
Plt Count 134
PT 13.8
INR 1.07
Total Bilirubin 1.8 H D
AST 149 H
ALT 246 H
Alkaline Phosphatase 192 H
Vital Signs:
Vital Signs
Temp Pulse Resp BP Pulse Ox
97.6 F 62 17 165/70 97
07/11/25 07:41 07/11/25 07:41 07/11/25 07:41 07/11/25 07:41 07/11/25 07:41
I&O
07/10/25 07/11/25 07/12/25
06:59 06:59 06:59
Intake Total 480 / 480 1500 / 1500
Balance 480 / 480 1500 / 1500
Review of Systems
-
History Source: Patient
All other systems: Reviewed and negative
Physical Exam
-
General: No Apparent Distress
HEENT: Normocephalic
GI: Soft, Nontender and Nondistended
Skin: Warm
Neuro: Awake, Alert, Oriented and AO x 3
Psych: Calm
--- NOTE | 2025-07-11 09:27 | W.DCSUMMARY ---
Addendum entered and electronically signed by Pankaj Archibald MD 07/11/25 09:33:
no pyuria on UA, no urinary symptoms - no indication to treat as UTI
Original Note:
Discharge Summary
Discharge Data
Date of Admission: 07/09/25
Date of Discharge: 07/11/25
-
Pending Results: No
Hospital Course
65yo F with PMHx of interstitial cystitis, CAD s/p [place] and PCI, HepC positive Ab, anxiety, HTN, thyroid CA s/p resection with postOP hypothyroidism came with c/o recurrent abdominal pain, started with diarrhea and currently subsiding. Also found
elevated LFT, probably 2/2 statin. 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
Tolerated solid food well, GI cannot exclude lactose intolerance too - advised low lactose diet. No episodes of diarrhea in hospital. Microhematuria advised to be followed with established urology. Medically stable to be d/c home. Bcx remained neg.
Mild leukopenia non-specific, probably 2/2 recent diarrhea.
I have spent at least 36min reviewing chart, test results, communication with consultants and providing direct patient care
Patient was managed for:
#Episodic abdominal pain, postprandial started with recent diarrhea that already subsided, cannot exclude viral gastroenteritis or lactose intolerance
#mild leukopenia
#Elevated bilirubin, mixed
#Transaminitis
#Elevated alk.phos
#Hx of HepC positive Ab
#Hx of statin intolerance
#1.1 cm benign-appearing splenic probable cyst or hemangioma
#microhematuria
#Hx of interstitial cystitis
#CAD s/p PCI
#Essential HTN
#Hypothyroidism
#Anxiety d/o
#Patient reported episode of chills
Discharge Plan
-
Patient Disposition: Home (Routine Discharge)
Discharge Diagnosis/Procedures: diarrhea, abdominal pain
Diet: Other diet
Additional Diets: Lactose free
Activity: As tolerated
Driving Restrictions: As prior to admission
Blood Work: LFT in 1 week with family doctor
Activity Restrictions/Additional Instructions:
Schedule appoitment with established urology office for hematuria evaluation
Referrals:
Silvano Bazzi DO [Family Provider, Family Practice]
Ruel Fernandes MD [Active, Cardiology] - in one to two weeks
Referral Note: For lipid-lowering alternative therapy
Balbina Mancera MD [Active, Gastroenterology] - in two to four weeks
Prescriptions:
Continued
alprazolam 0.25 MG tablet
0.125 mg PO BID
Patient Comments:
07/09/2025, last filled on 06/20/2025 for 30 tabs per PDMP.
valsartan [Diovan] 80 mg Tablet
80 mg PO BID
Patient Comments:
07/09/2025, pt. can only have brand name med.
Rx Instructions:
07/09/2025, 80 mg am and 120 mg evening (see 40 mg order)
levothyroxine 100 mcg Tablet
100 mcg PO MOTUWETHFR
cholecalciferol (vitamin D3) 50 mcg (2,000 unit) Tablet
50 mcg PO DAILY
levothyroxine 100 mcg Tablet
50 mcg PO SUSA
valsartan [Diovan] 40 mg Tablet
40 mg PO QPM
Patient Comments:
07/09/2025, pt. can only have brand name med.
Rx Instructions:
07/09/2025, take with 80 mg for a total of 120 mg.
Rescue Remedy liquid
2 drp PO DAILY
aspirin 81 mg Tablet,Delayed Release (Dr/Ec)
81 mg PO DAILY
acetaminophen [Tylenol Arthritis Pain] 650 mg Tablet Extended Release
650 mg PO BIDPRN PRN (Reason: mild pain)
Phazyme
1 tab PO DAILYPRN PRN (Reason: gas)
metoprolol succinate 25 mg tablet extended release 24 hr
25 mg PO DAILY
Discontinued
atorvastatin 20 mg Tablet
20 mg PO QPM
prochlorperazine maleate 5 mg Tablet
5 mg PO Q8HPRN PRN (Reason: nausea/vomiting)
Discharge Orders:
Discharge Patient (As Directed); Ordered 07/11/25
Ordered By: Pankaj Archibald
Discharge Date and Time
Print Language: AZERI
--- NOTE | 2025-07-11 11:14 | W.PN.GI.CBS2 ---
Addendum entered and electronically signed by Sally Ramos MD 07/11/25 11:34:
Also advised to stay on lactose-free low-fat diet
Original Note:
Today's Communication / Plan
-
Hold statin. Repeat LFT as outpatient
Outpatient GI follow-up
Assessment / Plan
-
[id number]-old female with PMHx significant for ASCVD, [place] s/p PCI, essential hypertension, remote history of thyroid carcinoma status post resection of thyroid (30 years ago), hep C antibodies, anxiety, postop hypothyroidism. Presents to the
ER for evaluation of acute abdominal pain. She is diagnosed to be having transaminitis and is admitted for further evaluation. GI is consulted for workup of her ongoing transaminitis.
Problem list-
# Jaundice
# Transaminitis
# Elevated alkaline phosphatase levels
# History of IBS
# History of statin induced liver injury.
# ASCVD, [place] s/p PCI
# Hep C positive antibodies.
# Small hiatal hernia
Recommendations-
-Although patient had an episode of abdominal cramps/pain last night after dinner which resolved spontaneously. Able to tolerate this a.m. breakfast with no symptoms. Currently awaiting to be discharged today since she is asymptomatic now.
Possible differential�IBS versus lactose intolerance versus gastroenteritis etc.
-LFTs this a.m. trending down. AST 149/ALT 246/total bilirubin 1.8/alkaline phosphatase 192. Previously had liver disease workup with Dr. Mancera-grossly unremarkable. Repeat hepatitis C antibody negative now. Although LDH mildly elevated as per
medical team low suspicion for hemolysis. Haptoglobin pending. Reticulocyte count normal. Statin on hold now again.
Continue to hold statin. Discussed with cardiology regarding alternate option. Repeat LFT in 1 week with PCP
Will recommend follow-up with Dr. Mancera after discharge. Will send message to the office. No further recommendation at this point. will s/o
Total Time Spent with Patient (in minutes): 35
Subjective
Subjective
Date of Service: July 11, 2025
Patient had an episode of abdominal pain after eating dinner. Resolved spontaneously within few minutes. No abdominal pain this a.m. with breakfast. Awaiting to be discharged today
Objective
Data Reviewed
Laboratory Data:
Laboratory Results
07/11/25 06:58
07/10/25 07:40
Laboratory Results
PT 13.8 Sec (11.4-14.6) 07/11/25 06:58
INR 1.07 07/11/25 06:58
Total Bilirubin 1.8 mg/dl (0.2-1.3) H D 07/11/25 06:58
AST 149 U/L (14-36) H 07/11/25 06:58
ALT 246 U/L (0-35) H 07/11/25 06:58
Alkaline Phosphatase 192 U/L (38-126) H 07/11/25 06:58
Lipase 75 U/L (23-300) 07/09/25 03:54
Vital Signs and I&O:
Vital Signs
Temp Pulse Resp BP Pulse Ox
97.6 F 72 17 165/70 97
07/11/25 07:41 07/11/25 09:08 07/11/25 07:41 07/11/25 09:08 07/11/25 07:41
I&O
07/10/25 07/11/25 07/12/25
06:59 06:59 06:59
Intake Total 480 / 480 1500 / 1500
Balance 480 / 480 1500 / 1500
Physical Exam
Physical Exam
GI: Soft, Non Distended and Non Tender
[2025-07-11 12:00] VITALS: BP 138/71
== END 2025-07-11 12:27 | disposition home or self-care (01) ==
LOC: 3 WEST ACU 09:00
PROVIDERS: Physician Assistant; ADMITTING PHYSICIAN Internal Medicine; CONSULT PHYSICIAN Internal Medicine Gastroenterology; EMERGENCY PHYSICIAN Student in an Organized Health Care Education/Training Program; FAMILY PHYSICIAN Family Medicine
DX: R10.13 Epigastric pain (principal); K58.0 Irritable bowel syndrome with diarrhea; F41.9 Anxiety disorder, unspecified; I10 Essential (primary) hypertension; I25.10 Atherosclerotic heart disease of native coronary artery without angina pectoris; D72.819 Decreased white blood cell count, unspecified; M79.7 Fibromyalgia; R68.83 Chills (without fever); D64.9 Anemia, unspecified; E89.0 Postprocedural hypothyroidism; I25.2 Old myocardial infarction; R74.8 Abnormal levels of other serum enzymes; R74.01 Elevation of levels of liver transaminase levels; Z11.52 Encounter for screening for COVID-19; Z79.899 Other long term (current) drug therapy; Z85.850 Personal history of malignant neoplasm of thyroid; Z91.148 Patient's other noncompliance with medication regimen for other reason; Z95.5 Presence of coronary angioplasty implant and graft; R17 Unspecified jaundice
CPT/HCPCS: 71046; 74177; 76700; 80053; 80076; 80143; 80306; 80307; 81003; 81015; 82077; 82248; 82550; 83010; 83615; 83690; 84443; 84484; 85025; 85027; 85045; 85610; 86704; 86705; 86706; 86709; 86803; 86880; 87040; 87086; 87340; 87502; 87811; 93005; 96360; 99285; G0378; Q9967